=== PATIENT | female | born 1990 | race Caucasian/White ===

== ENCOUNTER 2016-04-30 15:25 | Inpatient (IN) | payer BC ==
[2016-04-30 15:59] LABS: APPEARANCE,URINE SLIGHTLY-CLOUDY; BILIRUBIN,URINE NEGATIVE (NEGATIVE); GLUCOSE, URINE NEGATIVE (NEGATIVE); KETONES,URINE NEGATIVE (NEGATIVE); LEUKOCYTE ESTERASE,URINE NEGATIVE (NEGATIVE); NITRITE,URINE NEGATIVE (NEGATIVE); PROTEIN,URINE NEGATIVE (NEGATIVE); URINE SPECIFIC GRAVITY 1.012; UROBILINOGEN,URINE NEGATIVE mg/dL (<2.0)
--- NOTE | 2016-04-30 16:00 | L&D Flow Sheet ---
LD Flowsheet Datetime Report Generated by CPN: 04/30/2016 16:00 Datetime: 04/30/2016 15:46 Frequency (min): q 3 min (Corine Ioana, RN) Pain Scale: 3 (Corine Ioana, RN) Pain Presence: Intermittent (Corine Vitrano, RN) Pain Type: Contraction (Corine Jaronano, RN) Pain Location: Abdomen (Corine Vitrano, RN) Pain Relief Measures: Comfort Measures (Corine Vitrano, RN) Pain Coping: Breathing Through Contractions (Corine Vitrano, RN) Membrane Status: Intact (Corine Vitrano, RN) Vaginal Bleeding: Normal Show (Corine Vitrano, RN) Level of Consciousness: Fully Conscious (Corine Vitrano, RN) DTR's/Clonus: DTRs 2+; No Clonus (Corine Vitrano, RN) Headache: Denies (Corine Vitrano, RN) Breath Sounds, Left: Clear and Equal (Corine Vitrano, RN) Breath Sounds, Right: Clear and Equal (Corine Vitrano, RN) Nausea/Vomiting: Denies (Corine Triplett RN) RUQ Epigastric Pain: Denies (Corine Triplett RN) LaborFlag: Labor (QS system process) Datetime: 04/30/2016 15:45 I/O Interventions: Popsicle (Corine Triplett RN) Datetime: 04/30/2016 15:42 NBP Sys/Gemma/Mean (mmHg): 120 (QS system process) : 71 (QS system process) : 89 (QS system process) Pulse: 88 (QS system process) Respirations: 17 (Corine Triplett RN) Dilatation (cm): 3.5 (Corine Triplett RN) Effacement (%): 60 (Corine Triplett RN) Station: -2 (Corine Triplett RN) Exam by: Pilo Triplett RN (Corine Triplett RN) Vaginal Bleeding: Normal Show (Corine Triplett RN) Cervix, Consistency: Soft (Corine Triplett RN) Cervix, Position: Midposition (Corine Triplett RN) LaborFlag: Labor (QS system process) Datetime: 04/30/2016 15:40 Patient Position/Activity: Right Tilt; Semi-Fowlers (Corine Triplett RN) I/O Interventions: Clear Liquids Given (Corine Triplett RN) Instructional Method: Verbal; Patient Instructed; Family/Support Person Instructed; Verbalized Understanding (Corine Triplett RN) Plan of Care: Plan of Care Discussed (Corine Triplett RN) Unit Routine: [place] to Room; Call Stock; Bed; Unit Personnel; Monitoring; Safety/Fall Risk Prevention; Bathroom Privileges (Corine Triplett RN)
[2016-04-30 16:22] LABS: URINE BARBITURATES SCREEN NEGATIVE; URINE METHADONE SCREEN NEGATIVE; URINE OPIATES LOW NEGATIVE; URINE PHENCYCLIDINE SCREEN NEGATIVE
[2016-04-30] MEDS ORDERED: RINGERS SOLUTION,LACTATED 1,000 ML IV ONE (17:07)
[2016-04-30] MEDS ORDERED: FENTANYL/BUPIVACAINE/NS/PF 200 MCG/100 ML RTUINJ EPI ONE (17:23)
[2016-04-30] MEDS ORDERED: EPHEDRINE SULFATE INJ 50 MG/1 ML AMPULE ONE ×2 (17:23→21:19)
[2016-04-30] MEDS ORDERED: BUPIVACAINE HCL 0.25 % INJ/PF (2.5 MG/1 ML) 30 ML VIAL ONE (17:23)
[2016-04-30] MEDS ORDERED: FENTANYL CITRATE INJ/PF 100 MCG/2 ML AMPUL ONE (17:24)
[2016-04-30] MEDS ORDERED: PHENYLEPHRINE HCL INJ/PF 10 MG/1 ML SDV ONE (17:24)
[2016-04-30] MEDS ORDERED: ONDANSETRON HCL INJ/PF 4 MG/2 ML SDV IV ONE (17:45)
[2016-04-30] MEDS ORDERED: ONDANSETRON HCL INJ/PF 4 MG/2 ML SDV ONE (17:46)
[2016-04-30 17:55] LABS: ABSOLUTE LYMPHOCYTES (AUTO) 1.2 10^3/uL (0.5-4.7); ABSOLUTE MONOCYTES (AUTO) 0.8 10^3/uL (0.1-1.4); ABSOLUTE NEUT (AUTO) 15.7 10^3/uL (1.7-8.2); BASOPHILS % (AUTO) 0.1 % (0-2); EOSINOPHILS % (AUTO) 0.1 % (0-6); HEMATOCRIT 35.5 % (36.0-47.0); HEMOGLOBIN 12.3 g/dL (12.0-15.5); HGB HCT DIFFERENCE 1.4; LYMPHOCYTES % (AUTO) 6.8 % (13-45); MEAN CORPUSCULAR HEMOGLOBIN 31.2 pg (27.0-33.4); MEAN CORPUSCULAR HGB CONC 34.5 g/dL (32.0-36.0); MEAN CORPUSCULAR VOLUME 91 fl (80-97); MONOCYTES % (AUTO) 4.3 % (3-13); RED BLOOD COUNT 3.92 10^6/uL (3.72-5.28); RED CELL DISTRIBUTION WIDTH 12.5 % (11.5-14.0); SEGMENTED NEUTROPHILS % (AUTO) 88.7 % (42-78); WHITE BLOOD COUNT 17.7 10^3/uL (4.0-10.5)
--- NOTE | 2016-04-30 18:00 | L&D Flow Sheet ---
LD Flowsheet Datetime Report Generated by CPN: 04/30/2016 18:00 Datetime: 04/30/2016 17:57 Procedure Verify: Correct Patient Identity; Correct Side and Site are Marked; Accurate Procedure Consent Form; Agreement on Procedure to be Done; Relevant Images and Results are Properly Labeled and Displayed; Addressed Need to Administer Antibiotics or Fluids for Irrigation; Safety Precautions Based on Patient History or Medication Use (Corine Triplett RN) Anesthesia Plans: Epidural (Corine Triplett RN) Anesthesia Comments: Dr. Tatum called for epidural. States she will be available in approx 10-15 min. (Corine Triplett RN) Datetime: 04/30/2016 17:49 Medication Comments: Zofran 8 mg IV for nausea (Corine Triplett RN) Datetime: 04/30/2016 17:47 Pain Coping: Breathing Through Contractions; Requesting Pain Medication or Epidural (Corine Triplett RN) Pain Assessment Comments: Requesting epidural, LR bolusing (Corine Triplett RN) Comfort Measures: Rocking Chair (Corine Triplett RN) Procedure Verify: Correct Patient Identity; Correct Side and Site are Marked; Accurate Procedure Consent Form; Agreement on Procedure to be Done; Relevant Images and Results are Properly Labeled and Displayed; Addressed Need to Administer Antibiotics or Fluids for Irrigation; Safety Precautions Based on Patient History or Medication Use (Corine Triplett RN) Anesthesia Plans: Epidural (Corine Triplett RN) LaborFlag: Labor (QS system process) Datetime: 04/30/2016 17:34 Patient Care Comments: Labs drawn (Corine Triplett RN) Datetime: 04/30/2016 17:32 IV/Blood Work: IV Started; IV Bolus Started; IV Infusing per Order (Corine Triplett RN) Patient Care Comments: 18 G R hand site WNL; LR bolusing (Corineflorence Triplett RN) Datetime: 04/30/2016 17:30 Monitor Mode: External; Palpation (Rogerio Marks, RN) Frequency (min): 2-4 (Rogerio Marks, RN) Quality: Moderate (Rogerio Brunot, RN) Duration (sec): 80-110 (Rogerio Selina, RN) Duration Criteria: Less than Two 120 Second Contractions (Rogerio Marks, RN) Pattern: Normal: <= 5 Contractions in 10 Minutes (Rogerio Marks, RN) Resting Tone (Palpate): Relaxed (Rogerio Marks, RN) Monitor Mode: External US (Rogerio Marks, RN) FHR Baseline Rate : 130 (Rogerio Marks, RN) Variability: Moderate 6-25 bpm (Rogerio Selina, RN) Accelerations: 15X15 (Rogerio Pelletiereet, RN) Decelerations: None (Rogerio Ellisfleet, RN) Communication: RN at Bedside; RN Reviewed Strip (Rogerio Pelletiereet, RN) Datetime: 04/30/2016 17:21 Temperature (F): 98.0 (Rogerio Pelletiereet, RN) Temperature (C): 36.7 (QS system process) LaborFlag: Labor (QS system process) Datetime: 04/30/2016 17:15 Patient Care Comments: Consents reviewed and signed (Corine Vitrano, RN) Datetime: 04/30/2016 17:05 Communication Comments: Dr. Ellis at bedside to review POC with pt, answer pt questions (Corine Vitrano, RN) Datetime: 04/30/2016 17:04 NBP Sys/Gemma/Mean (mmHg): 111 (QS system process) : 68 (QS system process) : 83 (QS system process) Pulse: 89 (QS system process) Respirations: 16 (Corine Vitrano, RN) LaborFlag: Labor (QS system process) Datetime: 04/30/2016 17:03 Communication Comments: Dr. Ellis on unit, reviewed strip. Report given to include EGA 39.6, , pt complaints, nursing assessment, toco tracing, FHTs, VS, SVEs. Orders to admit pt for labor, epidural PRN. (Corine Vitrano, RN) Datetime: 04/30/2016 17:02 Dilatation (cm): 4.5 (Corine Jaronano, RN) Effacement (%): 70 (Corine Vitrano, RN) Station: -2 (Corine Jaronano, RN) Exam by: Pilo Triplett RN (Corine Vitrano, RN) Vaginal Bleeding: Normal Show (Corine Jaronano, RN) Cervix, Consistency: Soft (Corine Vitrano, RN) Cervix, Position: Midposition (Corine Jaronano, RN) Datetime: 04/30/2016 16:15 Pain Assessment Comments: Pt ambulating. Warm pack provided. (Corine Jaronano, RN) LaborFlag: Labor (QS system process) Datetime: 04/30/2016 16:02 Monitor Mode: External; Palpation (Corine Triplett RN) Frequency (min): 2-4 (Corine Triplett RN) Quality: Mild/Moderate (Corineflorence Triplett, RN) Duration (sec): 60-120 (Corine Ioana, RN) Duration Criteria: Less than Two 120 Second Contractions (Corine Triplett RN) Pattern: Normal: <= 5 Contractions in 10 Minutes (Corine Triplett, RN) Resting Tone (Palpate): Relaxed (Corine Triplett, RN) Monitor Mode: External US (Corine Triplett, RN) FHR Baseline Rate : 125 (Corine Triplett, RN) Variability: Moderate 6-25 bpm (Corine Triplett, RN) Accelerations: 15X15 (Corineflorence Triplett, RN) Decelerations: None (Corine Triplett, RN) Instructional Method: Verbal; Patient Instructed; Family/Support Person Instructed; Verbalized Understanding (Corine Triplett, RN) Plan of Care: Plan of Care Discussed (Corine Triplett, RN) Labor/Induction: Labor Stages; Activity (Corine Triplett, RN) Pain Management: Comfort Measures (Corine Triplett, RN) Communication Comments: Ruben Pino CNM on unit, reviewed strip. Report given to include EGA 39.6, , nursing assessment, pt complaints, pt history, VS, SVE. Orders to allow pt to ambulate q 1 hour. (Corine Triplett RN)
[2016-04-30] MEDS ORDERED: DIPHENHYDRAMINE HCL 50 MG/ML VIAL ONE (18:11)
--- NOTE | 2016-04-30 18:37 | L&D Progress Notes ---
PROGRESS NOTES Datetime Report Generated by CPN: 04/30/2016 18:36 PROGRESS NOTE Impression: Normal Progression of Labor; Reassuring Heart Rate Procedures: Artificial ROM; Sterile Vag Exam Plan: Continue Present Management Informed Consent Obtained: Vaginal Delivery Vital Signs : Reviewed Comment: Comfortable with epidural AROM, light mec Continue present mgmt VAGINAL EXAM Dilatation: 6 Effacement: 90 Station: -1 Contractions: every 2 min MEMBRANES Membranes: Ruptured Amniotic Fluid Color: Meconium, Light FETUS A FHR - Baseline: 120 Monitoring: External US Variability: Moderate 6-25bpm Accelerations: 15X15 Decelerations: None FHR Category: Category I SIGNATURE SIGNATURE: [id number] Assignment: Angélica Ellis MD Signature: with User ID: [id number] : with User ID: [email or web address]
[2016-04-30] MEDS ORDERED: MAG HYDROX/AL HYDROX/SIMETH SUSP 30 ML UDCUP ONE (19:19)
[2016-04-30] MEDS: RINGERS SOLUTION,LACTATED 1,000 ML IV PRN (19:22)
[2016-04-30] MEDS ORDERED: OXYTOCIN/NORMAL SALINE 20 UNIT/1,000 ML RTUINJ ONE (19:29)
--- NOTE | 2016-04-30 20:00 | L&D Flow Sheet ---
LD Flowsheet Datetime Report Generated by CPN: 04/30/2016 20:00 Datetime: 04/30/2016 19:57 NBP Sys/Gemma/Mean (mmHg): 112 (QS system process) : 64 (QS system process) : 82 (QS system process) Pulse: 81 (QS system process) LaborFlag: Labor (QS system process) Datetime: 04/30/2016 19:51 Patient Care Comments: Pt comfortable, denies complaints, denies needs (Corine Vitrano, RN) Datetime: 04/30/2016 19:45 Monitor Mode: External (Corine Vitrano, RN) Frequency (min): 1-4 (Corine Vitrano, RN) Quality: Moderate to Strong (Corine Vitrano, RN) Duration (sec): 50-90 (Corine Vitrano, RN) Duration Criteria: Less than Two 120 Second Contractions (Corine Vitrano, RN) Pattern: Normal: <= 5 Contractions in 10 Minutes (Corine Vitrano, RN) Resting Tone (Palpate): Relaxed (Corine Vitrano, RN) Monitor Mode: External US (Corine Vitrano, RN) FHR Baseline Rate : 130 (Corine Vitrano, RN) Variability: Moderate 6-25 bpm (Corine Vitrano, RN) Accelerations: 15X15 (Corine Vitrano, RN) Decelerations: None (Corine Vitrano, RN) Pitocin (milliunit): Pitocin Started (milliunits) @ 2; Pitocin 20 Units in 1000ml NS (Corine Vitrano, RN) Datetime: 04/30/2016 19:43 NBP Sys/Gemma/Mean (mmHg): 116 (QS system process) : 67 (QS system process) : 86 (QS system process) Pulse: 77 (QS system process) Respirations: 16 (Corine Vitrano, RN) LaborFlag: Labor (QS system process) Datetime: 04/30/2016 19:30 Monitor Mode: External (Corine Vitrano, RN) Frequency (min): 1-4 (Corine Vitrano, RN) Quality: Moderate to Strong (Corine Vitrano, RN) Duration (sec): 50-80 (Corine Vitrano, RN) Duration Criteria: Less than Two 120 Second Contractions (Corine Vitrano, RN) Pattern: Normal: <= 5 Contractions in 10 Minutes (Corine Vitrano, RN) Resting Tone (Palpate): Relaxed (Corine Vitrano, RN) Monitor Mode: External US (Corine Vitrano, RN) FHR Baseline Rate : 135 (Corine Vitrano, RN) Variability: Moderate 6-25 bpm (Corine Vitrano, RN) Accelerations: 15X15 (Corine Vitrano, RN) Decelerations: None (Corine Vitrano, RN) Datetime: 04/30/2016 19:27 NBP Sys/Gemma/Mean (mmHg): 102 (QS system process) : 63 (QS system process) : 76 (QS system process) Pulse: 82 (QS system process) Respirations: 16 (Corine Vitrano, RN) LaborFlag: Labor (QS system process) Datetime: 04/30/2016 19:23 Temperature (F): 98.0 (Corine Vitrano, RN) Temperature (C): 36.7 (QS system process) Temperature Route: Oral (Corine Vitrano, RN) LaborFlag: Labor (QS system process) Datetime: 04/30/2016 19:22 Medication Comments: Maalox 30 mL (Corine Vitrano, RN) Datetime: 04/30/2016 19:18 Patient Care Comments: Pt reports complaint of heartburn (Corine Vitrano, RN) Datetime: 04/30/2016 19:16 Patient Position/Activity: Left Tilt; Tailors (Corine Vitrano, RN) Datetime: 04/30/2016 19:15 Monitor Mode: External (Corine Vitrano, RN) Frequency (min): 1-3 (Corine Vitrano, RN) Quality: Moderate to Strong (Corine Vitrano, RN) Duration (sec): 50-130 (Corine Vitrano, RN) Duration Criteria: Less than Two 120 Second Contractions (Corine Vitrano, RN) Pattern: Normal: <= 5 Contractions in 10 Minutes (Corine Vitrano, RN) Resting Tone (Palpate): Relaxed (Corine Vitrano, RN) Monitor Mode: External US (Corine Vitrano, RN) FHR Baseline Rate : 125 (Corine Vitrano, RN) Variability: Moderate 6-25 bpm (Corine Vitrano, RN) Accelerations: None (Corine Vitrano, RN) Decelerations: None (Corine Vitrano, RN) Datetime: 04/30/2016 19:13 NBP Sys/Gemma/Mean (mmHg): 101 (QS system process) : 55 (QS system process) : 72 (QS system process) Pulse: 75 (QS system process) Respirations: 16 (Corine Vitrano, RN) LaborFlag: Labor (QS system process) Datetime: 04/30/2016 19:02 Communication Comments: Dr. Ellis placed call to unit, update on pt given. Orders received to augment with Pitocin 20 units in 1000 ML if contractions become more infrequent; start at 2 mU/min increasing q 15 by 2 mU/min to a max of 20 mU/min or until an adequate pattern of labor is established. (Corine Vitrano, RN) Datetime: 04/30/2016 19:00 Monitor Mode: External; Palpation (Corine Vitrano, RN) Frequency (min): 1-4 (Corine Vitrano, RN) Quality: Moderate to Strong (Corine Vitrano, RN) Duration (sec): 50-60 (Corine Vitrano, RN) Duration Criteria: Less than Two 120 Second Contractions (Corine Vitrano, RN) Pattern: Normal: <= 5 Contractions in 10 Minutes (Corine Vitrano, RN) Resting Tone (Palpate): Relaxed (Corine Vitrano, RN) Monitor Mode: External US (Corine Vitrano, RN) FHR Baseline Rate : 130 (Corine Vitrano, RN) Variability: Moderate 6-25 bpm (Corine Vitrano, RN) Accelerations: None (Corine Vitrano, RN) Decelerations: Early (Corine Vitrano, RN) Datetime: 04/30/2016 18:58 NBP Sys/Gemma/Mean (mmHg): 99 (QS system process) : 58 (QS system process) : 74 (QS system process) Pulse: 77 (QS system process) Respirations: 16 (Corine Vitrano, RN) LaborFlag: Labor (QS system process) Datetime: 04/30/2016 18:45 Monitor Mode: External (Corine Vitrano, RN) Frequency (min): 2-3.5 (Corine Vitrano, RN) Quality: Moderate to Strong (Corine Vitrano, RN) Duration (sec): 50-70 (Corine Vitrano, RN) Duration Criteria: Less than Two 120 Second Contractions (Corine Vitrano, RN) Pattern: Normal: <= 5 Contractions in 10 Minutes (Corine Vitrano, RN) Resting Tone (Palpate): Relaxed (Corine Vitrano, RN) Monitor Mode: External US (Corine Vitrano, RN) FHR Baseline Rate : 130 (Corine Vitrano, RN) Variability: Moderate 6-25 bpm (Corine Vitrano, RN) Accelerations: 15X15 (Corine Vitrano, RN) Decelerations: Early (Corine Vitrano, RN) Datetime: 04/30/2016 18:42 NBP Sys/Gemma/Mean (mmHg): 98 (QS system process) : 56 (QS system process) : 74 (QS system process) Pulse: 75 (QS system process) Respirations: 16 (Corine Vitrano, RN) LaborFlag: Labor (QS system process) Datetime: 04/30/2016 18:37 Patient Care Comments: Warm blankets given (Corine Vitrano, RN) Datetime: 04/30/2016 18:34 Pain Presence: None/Denies (Corine Ioana, RN) Pain Type: N/A (Corine Ioana, RN) Patient Position/Activity: Right Lateral; Peanut Ball (Corine Ioana, RN) Patient Care Comments: Skin irritation/itching improved, appears WNL (Corine Vitrano, RN) LaborFlag: Labor (QS system process) Datetime: 04/30/2016 18:33 Membrane Status: Ruptured (Corine Vitrano, RN) Membranes Rupture Method: Artificial (Corine Vitrano, RN) Amniotic Fluid Color: Light Meconium (Corine Vitrano, RN) Amniotic Fluid Amount: Large (Corine Vitrano, RN) Datetime: 04/30/2016 18:32 Communication Comments: H. Alvarez, CNM at bedside to AROM pt (Corine Vitrano, RN) Datetime: 04/30/2016 18:30 Monitor Mode: External; Palpation (Rogerio Marks RN) Frequency (min): 2-3 (Rogerio Marks, RN) Quality: Moderate (Rogerio Marks, RN) Duration (sec): 80-100 (Rogerio Marks, RN) Resting Tone (Palpate): Relaxed (Rogerio Marks RN) Monitor Mode: External US (Rogerio Marks RN) FHR Baseline Rate : 130 (Rogerio Marks, RN) Variability: Moderate 6-25 bpm (Rogerio Brunot, RN) Accelerations: 15X15 (Rogerio Marks, RN) Decelerations: None (Rogerio Marks, RN) Communication: RN at Bedside; RN Reviewed Strip (Rogerio Marks RN) Datetime: 04/30/2016 18:29 IV/Blood Work: IV Infusing per Order (Corine Triplett RN) Patient Care Comments: 125 mL/hour (Corine Jaronano, RN) Datetime: 04/30/2016 18:28 Patient Position/Activity: Right Lateral (Corine Vitrano, RN) Datetime: 04/30/2016 18:27 Patient Position/Activity: Left Lateral (Corine Vitrano, RN) Datetime: 04/30/2016 18:26 Dilatation (cm): 6.0 (Corine Vitrano, RN) Effacement (%): 80 (Corine Vitrano, RN) Station: -2 (Corine Vitrano, RN) Exam by: Pilo Triplett RN (Corine Vitrano, RN) Membrane Status: Bulging (Corine Vitrano, RN) Datetime: 04/30/2016 18:24 I/O Interventions: [place]in Cath Inserted (Corine Vitrano, RN) Patient Care Comments: Clear urine draining (Corine Vitrano, RN) Datetime: 04/30/2016 18:21 NBP Sys/Gemma/Mean (mmHg): 111 (QS system process) : 62 (QS system process) : 79 (QS system process) Pulse: 83 (QS system process) Respirations: 16 (Corine Vitrano, RN) LaborFlag: Labor (QS system process) Datetime: 04/30/2016 18:20 NBP Sys/Gemma/Mean (mmHg): 117 (QS system process) : 58 (QS system process) : 84 (QS system process) Pulse: 83 (QS system process) LaborFlag: Labor (QS system process) Datetime: 04/30/2016 18:19 NBP Sys/Gemma/Mean (mmHg): 119 (QS system process) : 58 (QS system process) : 81 (QS system process) Pulse: 80 (QS system process) Anesthesia Level Check: T10- Umbilicus (Corine Vitrano, RN) LaborFlag: Labor (QS system process) Datetime: 04/30/2016 18:18 NBP Sys/Gemma/Mean (mmHg): 121 (QS system process) : 64 (QS system process) : 83 (QS system process) Pulse: 81 (QS system process) LaborFlag: Labor (QS system process) Datetime: 04/30/2016 18:16 NBP Sys/Gemma/Mean (mmHg): 122 (QS system process) : 68 (QS system process) : 87 (QS system process) Pulse: 79 (QS system process) LaborFlag: Labor (QS system process) Datetime: 04/30/2016 18:15 NBP Sys/Gemma/Mean (mmHg): 127 (QS system process) : 79 (QS system process) : 98 (QS system process) Pulse: 82 (QS system process) Anesthesia Plans: Epidural (Corine Vitrano, RN) Epidural Procedure: Loading Dose (Corine Vitrano, RN) LaborFlag: Labor (QS system process) Datetime: 04/30/2016 18:14 NBP Sys/Gemma/Mean (mmHg): 115 (QS system process) : 63 (QS system process) : 83 (QS system process) Pulse: 82 (QS system process) Anesthesia Plans: Epidural (Corine Vitrano, RN) Epidural Procedure: Cath Placed (Corine Vitrano, RN) LaborFlag: Labor (QS system process) Datetime: 04/30/2016 18:13 Pulse: 84 (QS system process) SpO2 (%): 100 (QS system process) Anesthesia Plans: Epidural (Corine Vitrano, RN) Epidural Procedure: Test Dose (Corine Vitrano, RN) LaborFlag: Labor (QS system process) Datetime: 04/30/2016 18:11 Medication Comments: Benadryl 50 mg IV (Corine Vitrano, RN) Patient Care Comments: Raised white whelts and itching on R wrist. Dr. Ellis notified, orders for Benadryl 25 mg IV x1 now (Corine Vitrano, RN) Datetime: 04/30/2016 18:09 Comments: Broken tracing d/t pt position for epidural. RN remains at bedside adjusting US throughout procedure. (Corine Triplett RN) Datetime: 04/30/2016 18:08 Pulse: 84 (QS system process) SpO2 (%): 100 (QS system process) Procedure Verify: Correct Patient Identity; Correct Side and Site are Marked; Accurate Procedure Consent Form; Agreement on Procedure to be Done; Correct Patient Position; Relevant Images and Results are Properly Labeled and Displayed; Addressed Need to Administer Antibiotics or Fluids for Irrigation; Safety Precautions Based on Patient History or Medication Use (Corine Triplett RN) Anesthesia Plans: None; Epidural (Corine Triplett RN) Epidural Positioning: Sitting (Corine Triplett RN) Anesthesia Comments: Dr. Rodarte at bedside or epidural (Corine Triplett RN) LaborFlag: Labor (QS system process) Datetime: 04/30/2016 18:04 I/O Interventions: Up to BR (Corine Triplett RN) Datetime: 04/30/2016 18:00 Monitor Mode: External; Palpation (Rogerio Marks RN) Frequency (min): 2-4 (Rogerio Marks RN) Quality: Moderate (Rogerio Marks RN) Duration (sec): 60-90 (Rogerio Marks RN) Duration Criteria: Less than Two 120 Second Contractions (Rogerio Marks RN) Pattern: Normal: <= 5 Contractions in 10 Minutes (Rogerio Marks RN) Resting Tone (Palpate): Relaxed (Rogerio Marks RN) Monitor Mode: External US (Rogerio Marks RN) FHR Baseline Rate : 120 (Rogerio Marks RN) Variability: Moderate 6-25 bpm (Rogerio Marks RN) Accelerations: 15X15 (Rogerio Marks RN) Decelerations: None (Rogerio Marks RN) Communication: RN at Bedside; RN Reviewed Strip (Rogerio Marks RN)
[2016-04-30] MEDS ORDERED: LIDOCAINE 2%/EPINEPHRINE INJ 20 ML VIAL ONE (20:43)
[2016-04-30] MEDS ORDERED: SODIUM BICARBONATE 8.4% INJ 50 MEQ/50 ML DISP.SYRIN ONE (20:44)
--- NOTE | 2016-04-30 22:00 | L&D Flow Sheet ---
LD Flowsheet Datetime Report Generated by CPN: 04/30/2016 22:00 Datetime: 04/30/2016 21:59 NBP Sys/Gemma/Mean (mmHg): 103 (QS system process) : 57 (QS system process) : 78 (QS system process) Pulse: 109 (QS system process) LaborFlag: Labor (QS system process) Datetime: 04/30/2016 21:54 NBP Sys/Gemma/Mean (mmHg): 98 (QS system process) : 55 (QS system process) : 73 (QS system process) Pulse: 107 (QS system process) LaborFlag: Labor (QS system process) Datetime: 04/30/2016 21:49 NBP Sys/Gemma/Mean (mmHg): 106 (QS system process) : 58 (QS system process) : 78 (QS system process) Pulse: 102 (QS system process) LaborFlag: Labor (QS system process) Datetime: 04/30/2016 21:45 Monitor Mode: External (Corine Vitrano, RN) Frequency (min): 2-3 (Corine Vitrano, RN) Quality: Moderate to Strong (Corine Vitrano, RN) Duration (sec): 50-90 (Corine Vitrano, RN) Duration Criteria: Less than Two 120 Second Contractions (Corine Vitrano, RN) Pattern: Normal: <= 5 Contractions in 10 Minutes (Corine Vitrano, RN) Resting Tone (Palpate): Relaxed (Corine Vitrano, RN) Monitor Mode: External US (Corine Vitrano, RN) FHR Baseline Rate : 140 (Corine Vitrano, RN) Variability: Moderate 6-25 bpm (Corine Vitrano, RN) Accelerations: 10X10 (Corine Vitrano, RN) Decelerations: None (Corine Vitrano, RN) Datetime: 04/30/2016 21:44 NBP Sys/Gemma/Mean (mmHg): 98 (QS system process) : 51 (QS system process) : 71 (QS system process) Pulse: 98 (QS system process) Respirations: 16 (Corine Jaronano, RN) LaborFlag: Labor (QS system process) Datetime: 04/30/2016 21:42 NBP Sys/Gemma/Mean (mmHg): 94 (QS system process) : 53 (QS system process) : 68 (QS system process) Pulse: 164 (QS system process) Respirations: 16 (Corine Ioana, RN) Pain Presence: None/Denies (Corine Triplett RN) Pain Type: N/A (Corine Triplett RN) Patient Position/Activity: Right Tilt; Tailors (Corine Triplett RN) Patient Care Comments: Denies needs, resting comfortably (Corine Vitrano, RN) LaborFlag: Labor (QS system process) Datetime: 04/30/2016 21:41 Comments: O2 d/c (Corine Vitrano, RN) Datetime: 04/30/2016 21:39 NBP Sys/Gemma/Mean (mmHg): 88 (QS system process) : 51 (QS system process) : 67 (QS system process) Pulse: 78 (QS system process) Respirations: 16 (Corine Vitrano, RN) LaborFlag: Labor (QS system process) Datetime: 04/30/2016 21:38 NBP Sys/Gemma/Mean (mmHg): 86 (QS system process) : 46 (QS system process) : 63 (QS system process) Pulse: 82 (QS system process) Respirations: 16 (Corine Vitrano, RN) LaborFlag: Labor (QS system process) Datetime: 04/30/2016 21:36 NBP Sys/Gemma/Mean (mmHg): 84 (QS system process) : 41 (QS system process) : 59 (QS system process) Pulse: 82 (QS system process) Respirations: 16 (Corine Vitrano, RN) LaborFlag: Labor (QS system process) Datetime: 04/30/2016 21:33 NBP Sys/Gemma/Mean (mmHg): 91 (QS system process) : 43 (QS system process) : 62 (QS system process) Pulse: 78 (QS system process) Respirations: 16 (Corine Vitrano, RN) LaborFlag: Labor (QS system process) Datetime: 04/30/2016 21:31 NBP Sys/Gemma/Mean (mmHg): 90 (QS system process) : 45 (QS system process) : 65 (QS system process) Pulse: 82 (QS system process) Respirations: 16 (Corine Vitrano, RN) LaborFlag: Labor (QS system process) Datetime: 04/30/2016 21:30 NBP Sys/Gemma/Mean (mmHg): 96 (QS system process) : 46 (QS system process) : 67 (QS system process) Pulse: 86 (QS system process) Respirations: 16 (Corine Vitrano, RN) Monitor Mode: External; Palpation (Corine Vitrano, RN) Frequency (min): 2-3 (Corine Vitrano, RN) Quality: Moderate to Strong (Corine Vitrano, RN) Duration (sec): 50-60 (Corine Vitrano, RN) Duration Criteria: Less than Two 120 Second Contractions (Corine Vitrano, RN) Pattern: Normal: <= 5 Contractions in 10 Minutes (Corine Vitrano, RN) Resting Tone (Palpate): Relaxed (Corine Vitrano, RN) Monitor Mode: External US (Corine Vitrano, RN) FHR Baseline Rate : 140 (Corine Vitrano, RN) Variability: Minimal - Undetectable to <=5 bpm (Corine Vitrano, RN) Accelerations: None (Corine Vitrano, RN) Decelerations: Late; Variable; Prolonged (Corine Vitrano, RN) LaborFlag: Labor (QS system process) Datetime: 04/30/2016 21:27 NBP Sys/Gemma/Mean (mmHg): 86 (QS system process) : 42 (QS system process) : 60 (QS system process) Pulse: 90 (QS system process) Medication Comments: Ephedrine 5 mg IV (Corine Vitrano, RN) LaborFlag: Labor (QS system process) Datetime: 04/30/2016 21:26 Oxygen Amount : 10 (Corine Vitrano, RN) Oxygen Method: Non-Rebreather (Corine Vitrano, RN) Datetime: 04/30/2016 21:24 NBP Sys/Gemma/Mean (mmHg): 91 (QS system process) : 47 (QS system process) : 66 (QS system process) Pulse: 97 (QS system process) LaborFlag: Labor (QS system process) Datetime: 04/30/2016 21:23 Medication Comments: Ephedrine 5 mg IV (Corine Vitrano, RN) Datetime: 04/30/2016 21:22 IV/Blood Work: New IV Bag Hung; IV Bag Number @ 2 (Corine Vitrano, RN) Datetime: 04/30/2016 21:21 Pitocin (milliunit): Pitocin Discontinued (Corine Vitrano, RN) Patient Position/Activity: Right Lateral (Corine Vitrano, RN) Datetime: 04/30/2016:20 NBP Sys/Gemma/Mean (mmHg): 100 (QS system process) : 58 (QS system process) : 73 (QS system process) Pulse: 96 (QS system process) Medication Comments: Ephedrine 5 mg IV (Corine Vitrano, RN) LaborFlag: Labor (QS system process) Datetime: 04/30/2016 21:19 NBP Sys/Gemma/Mean (mmHg): 93 (QS system process) : 59 (QS system process) : 70 (QS system process) Pulse: 102 (QS system process) Respirations: 16 (Corine Vitrano, RN) Patient Position/Activity: Trendelenburg (Corine Vitrano, RN) LaborFlag: Labor (QS system process) Datetime: 04/30/2016 21:18 Medication Comments: Ephedrine 5 mg IV (Corine Vitrano, RN) Datetime: 04/30/2016 21:17 NBP Sys/Gemma/Mean (mmHg): 84 (QS system process) : 53 (QS system process) : 64 (QS system process) Pulse: 107 (QS system process) IV/Blood Work: IV Bolus Started (Corine Vitrano, RN) LaborFlag: Labor (QS system process) Datetime: 04/30/2016 21:15 Monitor Mode: External (Corine Vitrano, RN) Frequency (min): 2-3.5 (Corine Vitrano, RN) Quality: Moderate to Strong (Corine Vitrano, RN) Duration (sec): 50-70 (Corine Vitrano, RN) Duration Criteria: Less than Two 120 Second Contractions (Corine Vitrano, RN) Pattern: Normal: <= 5 Contractions in 10 Minutes (Corine Vitrano, RN) Resting Tone (Palpate): Relaxed (Corine Vitrano, RN) Monitor Mode: External US (Corine Vitrano, RN) FHR Baseline Rate : 140 (Corine Vitrano, RN) Variability: Moderate 6-25 bpm (Corine Vitrano, RN) Accelerations: None (Corine Vitrano, RN) Decelerations: Late (Corine Vitrano, RN) Pitocin (milliunit): Pitocin Remains (milliunits) @ 8 (Corine Vitrano, RN) Patient Position/Activity: Left Lateral (Corine Vitrano, RN) Datetime: 04/30/2016 21:13 NBP Sys/Gemma/Mean (mmHg): 84 (QS system process) : 51 (QS system process) : 61 (QS system process) Pulse: 100 (QS system process) LaborFlag: Labor (QS system process) Datetime: 04/30/2016 21:00 Monitor Mode: External; Palpation (Corine Vitrano, RN) Frequency (min): 2-4 (Corine Vitrano, RN) Quality: Moderate to Strong (Corine Vitrano, RN) Duration (sec): 60-90 (Corine Vitrano, RN) Duration Criteria: Less than Two 120 Second Contractions (Corine Vitrano, RN) Pattern: Normal: <= 5 Contractions in 10 Minutes (Corine Vitrano, RN) Resting Tone (Palpate): Relaxed (Corine Vitrano, RN) Monitor Mode: External US (Corine Vitrano, RN) FHR Baseline Rate : 140 (Corine Vitrano, RN) Variability: Moderate 6-25 bpm (Corine Vitrano, RN) Accelerations: None (Corine Vitrano, RN) Decelerations: Early (Corine Vitrano, RN) Pain Presence: None/Denies (Corine Vitrano, RN) Pain Type: N/A (Corine Vitrano, RN) Pitocin (milliunit): Pitocin Increased to (milliunits) @ 8 (Corine Vitrano, RN) LaborFlag: Labor (QS system process) Datetime: 04/30/2016 20:59 Patient Position/Activity: Right Lateral (Corine Vitrano, RN) Datetime: 04/30/2016 20:58 NBP Sys/Gemma/Mean (mmHg): 100 (QS system process) : 55 (QS system process) : 72 (QS system process) Pulse: 93 (QS system process) Respirations: 16 (Corine Vitrano, RN) Temperature (F): 98.3 (Corine Vitrano, RN) Temperature (C): 36.8 (QS system process) Temperature Route: Oral (Corine Vitrano, RN) LaborFlag: Labor (QS system process) Datetime: 04/30/2016 20:52 Patient Position/Activity: Left Tilt; Low Fowlers (Corine Vitrano, RN) Datetime: 04/30/2016 20:51 NBP Sys/Gemma/Mean (mmHg): 125 (QS system process) : 69 (QS system process) : 89 (QS system process) Pulse: 74 (QS system process) Respirations: 16 (Corine Vitrano, RN) LaborFlag: Labor (QS system process) Datetime: 04/30/2016 20:50 Epidural Procedure Other: Redose (Corine Vitrano, RN) Anesthesia Comments: [facility] bedside bolusing epidural w 2% Lidocaine w/epinephrine (Corine Vitrano, RN) Datetime: 04/30/2016 20:45 Monitor Mode: External (Corine Vitrano, RN) Frequency (min): 1-3 (Corine Vitrano, RN) Quality: Moderate (Corine Vitrano, RN) Duration (sec): 50-110 (Corine Vitrano, RN) Duration Criteria: Less than Two 120 Second Contractions (Corine Vitrano, RN) Pattern: Normal: <= 5 Contractions in 10 Minutes (Corine Vitrano, RN) Resting Tone (Palpate): Relaxed (Corine Vitrano, RN) Monitor Mode: External US (Corine Vitrano, RN) FHR Baseline Rate : 135 (Corine Vitrano, RN) Variability: Moderate 6-25 bpm (Corine Vitrano, RN) Accelerations: None (Corine Vitrano, RN) Decelerations: None (Corine Vitrano, RN) Pitocin (milliunit): Pitocin Remains (milliunits) @ 6 (Corine Vitrano, RN) Datetime: 04/30/2016 20:42 NBP Sys/Gemma/Mean (mmHg): 122 (QS system process) : 67 (QS system process) : 88 (QS system process) Pulse: 75 (QS system process) Respirations: 16 (Corine Vitrano, RN) LaborFlag: Labor (QS system process) Datetime: 04/30/2016 20:41 Anesthesia Comments: Dr. [place] notified of pt complaint of pain, provider to bolus pt epidural (Corine Vitrano, RN) Datetime: 04/30/2016 20:40 Pitocin (milliunit): Pitocin Increased to (milliunits) @ 6 (Corine Vitrano, RN) Datetime: 04/30/2016 20:38 Anesthesia Level Check: T10- Umbilicus (Corine Vitrano, RN) Datetime: 04/30/2016 20:36 Patient Position/Activity: Right Tilt; Semi-Fowlers (Corine Vitrano, RN) Datetime: 04/30/2016 20:35 Pain Presence: Intermittent (Corine Vitrano, RN) Pain Type: Contraction (Corine Vitrano, RN) Pain Location: Abdomen (Corine Vitrano, RN) Dilatation (cm): 7.0 (Corine Vitrano, RN) Effacement (%): 80 (Corine Vitrano, RN) Station: -1 (Corine Vitrano, RN) Exam by: Pilo Triplett RN (Corine Vitrano, RN) LaborFlag: Labor (QS system process) Datetime: 04/30/2016 20:30 Monitor Mode: External (Corine Vitrano, RN) Frequency (min): 2-3 (Corine Vitrano, RN) Quality: Moderate to Strong (Corine Vitrano, RN) Duration (sec): 50-80 (Corine Vitrano, RN) Duration Criteria: Less than Two 120 Second Contractions (Corine Vitrano, RN) Pattern: Normal: <= 5 Contractions in 10 Minutes (Corine Vitrano, RN) Resting Tone (Palpate): Relaxed (Corine Vitrano, RN) Monitor Mode: External US (Corine Vitrano, RN) FHR Baseline Rate : 135 (Corine Vitrano, RN) Variability: Moderate 6-25 bpm (Corine Vitrano, RN) Accelerations: None (Corine Vitrano, RN) Decelerations: None (Corine Vitrano, RN) Pitocin (milliunit): Pitocin Remains (milliunits) @ 4 (Corine Vitrano, RN) Datetime: 04/30/2016 20:28 NBP Sys/Gemma/Mean (mmHg): 116 (QS system process) : 60 (QS system process) : 80 (QS system process) Pulse: 80 (QS system process) Respirations: 16 (Corine Vitrano, RN) LaborFlag: Labor (QS system process) Datetime: 04/30/2016 20:15 Monitor Mode: External (Corine Vitrano, RN) Frequency (min): 1-3 (Corine Vitrano, RN) Quality: Moderate to Strong (Corine Vitrano, RN) Duration (sec): 50-60 (Corine Vitrano, RN) Duration Criteria: Less than Two 120 Second Contractions (Corine Vitrano, RN) Pattern: Normal: <= 5 Contractions in 10 Minutes (Corine Vitrano, RN) Resting Tone (Palpate): Relaxed (Corine Vitrano, RN) Monitor Mode: External US (Corine Vitrano, RN) FHR Baseline Rate : 130 (Corine Vitrano, RN) Variability: Moderate 6-25 bpm (Corine Vitrano, RN) Accelerations: None (Corine Vitrano, RN) Decelerations: Early (Corine Vitrano, RN) Pitocin (milliunit): Pitocin Increased to (milliunits) @ 4 (Corine Vitrano, RN) Datetime: 04/30/2016 20:13 NBP Sys/Gemma/Mean (mmHg): 103 (QS system process) : 56 (QS system process) : 75 (QS system process) Pulse: 74 (QS system process) Respirations: 16 (Corine Vitrano, RN) LaborFlag: Labor (QS system process) Datetime: 04/30/2016 20:04 Patient Position/Activity: Right Lateral; Peanut Ball (Corine Vitrano, RN) Datetime: 04/30/2016 20:00 Monitor Mode: External; Palpation (Corine Vitrano, RN) Frequency (min): 1-4 (Corine Vitrano, RN) Quality: Moderate to Strong (Corine Vitrano, RN) Duration (sec): 50-80 (Corine Vitrano, RN) Duration Criteria: Less than Two 120 Second Contractions (Corine Vitrano, RN) Pattern: Normal: <= 5 Contractions in 10 Minutes (Corine Vitrano, RN) Resting Tone (Palpate): Relaxed (Corine Vitrano, RN) Monitor Mode: External US (Corine Vitrano, RN) FHR Baseline Rate : 130 (Corine Vitrano, RN) Variability: Moderate 6-25 bpm (Corine Vitrano, RN) Accelerations: 15X15 (Corine Vitrano, RN) Decelerations: None (Corine Vitrano, RN) Pitocin (milliunit): Pitocin Remains (milliunits) @ 2 (Corine Vitrano, RN)
[2016-05-01] MEDS ORDERED: MAG HYDROX/AL HYDROX/SIMETH SUSP 30 ML UDCUP ONE (00:19)
[2016-05-01] MEDS ORDERED: NALBUPHINE HCL INJ 10 MG/1 ML AMPULE ONE (01:01)
[2016-05-01] MEDS ORDERED: ONDANSETRON 4 MG TAB.RAPDIS ONE (01:02)
[2016-05-01] MEDS ORDERED: DIPHENHYDRAMINE HCL 25 MG CAPSULE ONE (01:02)
[2016-05-01] MEDS ORDERED: FENTANYL CITRATE INJ/PF 100 MCG/2 ML AMPUL ONE ×2 (02:16→05:19)
[2016-05-01] MEDS ORDERED: EPHEDRINE SULFATE INJ 50 MG/1 ML AMPULE ONE ×2 (02:37→05:19)
[2016-05-01] MEDS ORDERED: LIDOCAINE 2%/EPINEPHRINE INJ 20 ML VIAL ONE (02:38)
[2016-05-01] MEDS ORDERED: FENTANYL CITRATE INJ/PF 100 MCG/2 ML AMPUL IV ONE (02:45)
[2016-05-01] MEDS ORDERED: FENTANYL/BUPIVACAINE/NS/PF 200 MCG/100 ML RTUINJ EPI ONE (03:00)
[2016-05-01] MEDS ORDERED: CITRIC ACID/SODIUM CITRATE ORAL SOLN 15 ML UDCUP ONE (04:55)
[2016-05-01] MEDS ORDERED: CEFAZOLIN 2 GM/D5W RTU 2 GM/50 ML RTUPB IV ONE (04:55)
[2016-05-01] MEDS ORDERED: OXYTOCIN 10 UNIT/ML VIAL ONE (05:18)
[2016-05-01] MEDS ORDERED: OXYTOCIN/NORMAL SALINE 20 UNIT/1,000 ML RTUINJ ONE (05:18)
[2016-05-01] MEDS ORDERED: KETAMINE HCL INJ 500 MG/10 ML VIAL ONE (05:19)
[2016-05-01] MEDS ORDERED: MIDAZOLAM 2 MG/2 ML INJ ONE (05:19)
[2016-05-01] MEDS ORDERED: FENTANYL CITRATE INJ/PF 100 MCG/2 ML AMPUL IV PRN ×3 (06:12)
[2016-05-01] MEDS ORDERED: MEPERIDINE HCL/PF INJ 25 MG/1 ML DISP.SYRIN IV PRN (06:12)
[2016-05-01] MEDS ORDERED: DIPHENHYDRAMINE HCL 50 MG/ML VIAL IV PRN (06:12)
[2016-05-01] MEDS ORDERED: PROMETHAZINE HCL INJ 25 MG/1 ML VIAL IV PRN ×3 (06:12→06:56)
[2016-05-01] MEDS ORDERED: MORPHINE SULFATE 10 MG/ML INJ IV PRN ×2 (06:12→06:56)
[2016-05-01] MEDS ORDERED: ACETAMINOPHEN 100 ML IV ONE (06:34)
[2016-05-01] MEDS ORDERED: OXYCODONE-ACETAMINOPHEN 5-325 MG TABLET PO PRN (06:56)
[2016-05-01] MEDS ORDERED: ACETAMINOPHEN 325 MG TABLET PO PRN (06:56)
[2016-05-01] MEDS ORDERED: SIMETHICONE 80 MG TAB.CHEW PO PRN (06:56)
[2016-05-01] MEDS ORDERED: ACETAMINOPHEN 100 ML IV PRN (06:56)
[2016-05-01] MEDS ORDERED: OXYTOCIN/NORMAL SALINE 1,000 ML IV PRN (06:56)
[2016-05-01] MEDS ORDERED: MEASLES,MUMPS&RUBELLA VACC/PF 0.5 ML VIAL SUBCUT PRN (06:56)
[2016-05-01] MEDS ORDERED: DIPH/PERTUSS(ACELL)/TETANUS VAC/PF 0.5 ML SYR (>=10YO) IM PRN (06:56)
--- NOTE | 2016-05-01 07:31 | Delivery Summary ---
Del Sum A-C Datetime Report Generated by CPN: 05/01/2016 07:30 ADMISSION DATA Chief Complaint: Uterine Contractions Indication for Induction: Not Applicable Admission Impression: Term, Intrauterine ; Active Labor DELIVERY PERSONNEL Delivery Doctor:: Angélica Ellis MD Anesthesiologist:: Wanda Tatum MD WOMEN'S STUDIES PROFESSOR:: Yolanda Sanchez CRNA Labor and Delivery Nurse:: Corine Triplett RN Neonatal Nurse Practitioner:: LAURIE Woody Nursery Nurse:: Florenec [place], RN Registered Nurse Nursery/[employer]: Dwayne Ertel, [employer] MATERNAL INFORMATION Delivery Anesthesia: Epidural Medications After Delivery: Other-Please Comment Meds After Delivery Comment: pitocin 20 units in 1000 mL NSS x2 after delivery Estimated Blood Loss (ml): 600 Maternal Complications: Abnormal Cord Length LABOR SUMMARY EDC: 05/01/2016 00:00 No. Babies in Womb: 1 Attempted: No Labor Anesthesia: Epidural LABOR INFORMATION Reason for Induction: Not Applicable Onset of Labor: 05/01/2016 18:26 Oxytocin: Augmentation Group B Beta Strep: Negative MEMBRANES Membranes Rupture Method: Artificial Rupture of Membranes: 04/30/2016 18:33 Length of Rupture (hr): -12.70 Amniotic Fluid Color: Light Meconium Amniotic Fluid Amount: Large Amniotic Fluid Odor: Normal STAGES OF LABOR Stage 3 hr: 0 Stage 3 min: 1 Total Time in Labor hr: -36 Total Time in Labor min: -34 VAGINAL DELIVERY Episiotomy: None Laceration Extension: N/A Laceration Type: None CSECTION DELIVERY Primary Indication: Failure of Descent CSection Urgency: Non-Scheduled CSection Incidence: N/A Labor: Labor Elective: N/A CSection Incision: Lower Uterine Transverse BABY A INFORMATION Infant Delivery Date/Time: 04/30/2016 05:51 Method of Delivery: Born in Route : No : N/A Forceps: N/A Vacuum Extraction: N/A Shoulder Dystocia : No PRESENTATION/POSITION BABY A Presentation: Cephalic Cephalic Presentation: Vertex PLACENTA INFORMATION BABY A Placenta Delivery Time : 04/30/2016 05:52 Placenta Method of Delivery: Manual Removal Placenta Status: Delivered SCORES BABY A Heart Rate 1 min: >100 bpm Resp Effort 1 min: Good Cry Reflex Irritability 1 min: Cough or Sneeze or Pulls Away Muscle Tone 1 min: Active Motion Color 1 min: Body Gaffney, Extremities Blue SCORE 1 MIN: 9 Heart Rate 5 min: >100 bpm Resp Effort 5 min: Good Cry Reflex Irritability 5 min: Cough or Sneeze or Pulls Away Muscle Tone 5 min: Active Motion Color 5 min: Body Gaffney, Extremities Blue SCORE 5 MIN: 9 INFANT INFORMATION BABY A Gestational Age at Delivery: 40.0 Gestational Status: Full Term- 39- 40.6 Weeks Infant Outcome : Liveborn Condition : Stable Infant Sex: Male WEIGHT/LENGTH BABY A Birthweight (gm): 4200 Weight (lb): 9 Weight (oz): 4 Infant Length (in): 21.25 Length (cm): 53.98 CORD INFORMATION BABY A No. Cord Vessels: 3 Nuchal Cord : N/A Nuchal Cord- Other: 0 Cord Blood Taken: Yes-For Eval (Mom's Blood Type - or O+) Suction: Mouth; Nose ASSESSMENT BABY A Infant Complications: Meconium Physical Findings at Delivery: Within Normal Limits Respirations: Appears Normal Skin to Skin: Yes Infant Care By: Aquilino Camacho RN and Asad Urrutia, CNNP Transferred To: [facility] BABY B INFORMATION : N/A
--- NOTE | 2016-05-01 08:00 | L&D Flow Sheet ---
LD Flowsheet Datetime Report Generated by CPN: 05/01/2016 08:00 Datetime: 05/01/2016 07:37 NBP Sys/Gemma/Mean (mmHg): 112 (QS system process) : 56 (QS system process) : 79 (QS system process) Pulse: 68 (QS system process) Datetime: 05/01/2016 07:22 NBP Sys/Gemma/Mean (mmHg): 115 (QS system process) : 56 (QS system process) : 78 (QS system process) Pulse: 75 (QS system process) Datetime: 05/01/2016 07:15 Stage of : Recovery (Florence Julito, RN) Pain Scale: 0 (Florence Julito, RN) Pain Presence: None/Denies (Florence Vila, RN) Pain Type: N/A (Florence Vila, RN) Datetime: 05/01/2016 07:07 NBP Sys/Gemma/Mean (mmHg): 116 (QS system process) : 53 (QS system process) : 77 (QS system process) Pulse: 89 (QS system process) Datetime: 05/01/2016 06:51 Pulse: 100 (QS system process) SpO2 (%): 94 (QS system process) Datetime: 05/01/2016 06:48 NBP Sys/Gemma/Mean (mmHg): 120 (QS system process) : 56 (QS system process) : 81 (QS system process) Pulse: 86 (QS system process) Datetime: 05/01/2016 06:46 Pulse: 90 (QS system process) SpO2 (%): 100 (QS system process) Datetime: 05/01/2016 06:43 NBP Sys/Gemma/Mean (mmHg): 112 (QS system process) : 54 (QS system process) : 77 (QS system process) Pulse: 84 (QS system process) Datetime: 05/01/2016 06:41 Pulse: 87 (QS system process) SpO2 (%): 98 (QS system process) Datetime: 05/01/2016 06:40 Pain Presence: None/Denies (Kavita Stacie, RN) Datetime: 05/01/2016 06:38 NBP Sys/Gemma/Mean (mmHg): 120 (QS system process) : 56 (QS system process) : 80 (QS system process) Pulse: 82 (QS system process) Datetime: 05/01/2016 06:36 Pulse: 81 (QS system process) SpO2 (%): 98 (QS system process) Datetime: 05/01/2016 06:32 NBP Sys/Gemma/Mean (mmHg): 116 (QS system process) : 53 (QS system process) : 77 (QS system process) Pulse: 80 (QS system process) Datetime: 05/01/2016 06:31 Stage of : Recovery (Kavita Quinones, RN) Datetime: 05/01/2016 05:44 Procedure Type: c/s (Kavita Quinones, RN) Procedure Verify: Correct Patient Identity; Correct Side and Site are Marked; Accurate Procedure Consent Form; Agreement on Procedure to be Done; Correct Patient Position; Relevant Images and Results are Properly Labeled and Displayed; Addressed Need to Administer Antibiotics or Fluids for Irrigation; Safety Precautions Based on Patient History or Medication Use (Kavita Quinones, RN) Datetime: 05/01/2016 05:33 Communication Comments: Out of room to OR via bed. ([facility], RN) Datetime: 05/01/2016 05:32 Comments: monitors discontinued, pt to OR via stretcher at 0533 (Kavita Stacie, RN) Datetime: 05/01/2016 05:30 Monitor Mode: External (Kavita Stacie, RN) Frequency (min): 3-4 (Kavita Stacie, RN) Quality: Strong (Kavita Stacie, RN) Duration (sec): 40-70 (Kavita Stacie, RN) Resting Tone (Palpate): Relaxed (Kavita Stacie, RN) Monitor Mode: External US (Kavita Stacie, RN) FHR Baseline Rate : 135 (Kavita Stacie, RN) Variability: Moderate 6-25 bpm (Kavita Stacie, RN) Accelerations: 15X15 (Kavita Stacie, RN) Decelerations: None (Kavita Stacie, RN) Medication Comments: ancef 2 gm IVPB (Kavita Stacie, RN) Datetime: 05/01/2016 05:27 NBP Sys/Gemma/Mean (mmHg): 138 (QS system process) : 65 (QS system process) : 94 (QS system process) Pulse: 79 (QS system process) LaborFlag: Labor (QS system process) Datetime: 05/01/2016 05:21 Anesthesia Comments: M McMicheal AGILE JAVA DEVELOPER at bedside bolusing epidural for c/s (Kavita Quinones, RN) Datetime: 05/01/2016 05:18 Temperature (F): 98.1 (Kavita Fallonl, RN) Temperature (C): 36.7 (QS system process) LaborFlag: Labor (QS system process) Datetime: 05/01/2016 05:17 NBP Sys/Gemma/Mean (mmHg): 120 (QS system process) : 63 (QS system process) : 84 (QS system process) Pulse: 91 (QS system process) LaborFlag: Labor (QS system process) Datetime: 05/01/2016 05:15 Monitor Mode: External (Kavita Satcie, RN) Frequency (min): 2-4 (Kavita Stacie, RN) Quality: Strong (Kavita Stacie, RN) Duration (sec): 90-120 (Kavita Stacie, RN) Resting Tone (Palpate): Relaxed (Kavita Stacie, RN) Monitor Mode: External US (Kavita Stacie, RN) FHR Baseline Rate : 135 (Kavita Stacie, RN) Variability: Moderate 6-25 bpm (Kavita Stacie, RN) Accelerations: 15X15 (Kavita Stacie, RN) Decelerations: None (Kavita Stacie, RN) Datetime: 05/01/2016 05:12 Patient Care Comments: osmel wipes to abd (Kavita Stacie, RN) Datetime: 05/01/2016 05:11 Procedures: Consents Signed (Kavita Stacie, RN) Datetime: 05/01/2016 05:07 Medication Comments: bicitra 15 mL PO (Kavita Stacie, RN) Datetime: 05/01/2016 05:06 Patient Care Comments: TEDs and SCDs applied (Kavita Stacie, RN) Datetime: 05/01/2016 05:04 NBP Sys/Gemma/Mean (mmHg): 129 (QS system process) : 68 (QS system process) : 91 (QS system process) Pulse: 87 (QS system process) LaborFlag: Labor (QS system process) Datetime: 05/01/2016 05:00 Monitor Mode: External (Kavita Stacie, RN) Frequency (min): 1-2 (Kavita Stacie, RN) Quality: Strong (Kavita Stacie, RN) Duration (sec): 60-120 (Kavita Stacie, RN) Resting Tone (Palpate): Relaxed (Kavita Stacie, RN) Monitor Mode: External US (Kavita Stacie, RN) FHR Baseline Rate : 135 (Kavita Stacie, RN) Variability: Moderate 6-25 bpm (Kavita Stacie, RN) Accelerations: 15X15 (Kavita Stacie, RN) Decelerations: None (Kavita Stacie, RN) Datetime: 05/01/2016 04:58 Communication Comments: Informed Janell, FAMILY SERVICES WORKER that called for failure to progress. (Leticia Lattibeaudeir, RN) Datetime: 05/01/2016 04:57 Communication Comments: Informed Nsy called for failure to progress. (Leticia Lattibeaudeir, RN) Datetime: 05/01/2016 04:56 Pitocin (milliunit): Pitocin Discontinued (Kavita Quinones RN) Plan of Care: C/S Delivery (Kavita Quinones RN) Communication: RN at Bedside (Kavita Quinones RN) Communication Comments: Informed Drafting Teacher, [place], and [place] that called for failure to progress. (Leticia Ibarra RN) Datetime: 05/01/2016 04:55 Communication: Report Given to @ Dr Ellis (Kavita Quinones RN) Communication Comments: c/s called (Kavita Quinones RN) Datetime: 05/01/2016 04:49 Pain Assessment Comments: Pt states her pain is increasing, like she is "losing her epidural again" (Kavita Quinones RN) Dilatation (cm): 8.0 (Kavita Quinones RN) Effacement (%): 80 (Kavita Quinones RN) Station: -1 (Kavita Quinones RN) Exam by: Sheryl Quinones RN (Kavita Quinones RN) Communication: RN at Bedside (Kavita Quinones RN) LaborFlag: Labor (QS system process) Datetime: 05/01/2016 04:47 NBP Sys/Gemma/Mean (mmHg): 114 (QS system process) : 57 (QS system process) : 79 (QS system process) Pulse: 90 (QS system process) LaborFlag: Labor (QS system process) Datetime: 05/01/2016 04:45 Monitor Mode: External (Kavita Quinones RN) Frequency (min): 1-5 (Kavita Quinones RN) Quality: Strong (Kavita Quinones RN) Duration (sec): 90-100 (Kavita Quinones RN) Resting Tone (Palpate): Relaxed (Kavita Stacie, RN) Monitor Mode: External US (Kavita Stacie, RN) FHR Baseline Rate : 135 (Kavita Stacei, RN) Variability: Moderate 6-25 bpm (Kavita Stacie, RN) Accelerations: 10X10 (Kavita Stacie, RN) Decelerations: None (Kavita Stacie, RN) Datetime: 05/01/2016 04:32 NBP Sys/Gemma/Mean (mmHg): 107 (QS system process) : 58 (QS system process) : 79 (QS system process) Pulse: 90 (QS system process) LaborFlag: Labor (QS system process) Datetime: 05/01/2016 04:30 Monitor Mode: External (Kavita Stacie, RN) Frequency (min): 2-4 (Kavita Stacie, RN) Quality: Strong (Kavita Stacie, RN) Duration (sec): 70-100 (Kavita Stacie, RN) Resting Tone (Palpate): Relaxed (Kavita Stacie, RN) Monitor Mode: External US (Kavita Stacie, RN) FHR Baseline Rate : 135 (Kavita Stacie, RN) Variability: Moderate 6-25 bpm (Kavita Stacie, RN) Accelerations: 15X15 (Kavita Stacie, RN) Decelerations: None (Kavita Stacie, RN) Datetime: 05/01/2016 04:21 Pitocin (milliunit): Pitocin Increased to (milliunits) @ 8 (Kavita Stacie, RN) Patient Position/Activity: Right Lateral (Kavita Stacie, RN) Communication: RN at Bedside (Kavita Stacie, RN) Datetime: 05/01/2016 04:18 NBP Sys/Gemma/Mean (mmHg): 122 (QS system process) : 62 (QS system process) : 86 (QS system process) Pulse: 91 (QS system process) LaborFlag: Labor (QS system process) Datetime: 05/01/2016 04:15 Monitor Mode: External (Kavita Stacie, RN) Frequency (min): 2.5-4 (Kavita Stacie, RN) Quality: Strong (Kavita Stacie, RN) Duration (sec): 70-90 (Kavita Stacie, RN) Resting Tone (Palpate): Relaxed (Kavita Stacie, RN) Monitor Mode: External US (Kavita Stacie, RN) FHR Baseline Rate : 135 (Kavita Stacie, RN) Variability: Moderate 6-25 bpm (Kavita Stacie, RN) Accelerations: 10X10 (Kavita Stacie, RN) Decelerations: None (Kavita Stacie, RN) Datetime: 05/01/2016 04:03 NBP Sys/Gemma/Mean (mmHg): 119 (QS system process) : 61 (QS system process) : 82 (QS system process) Pulse: 85 (QS system process) LaborFlag: Labor (QS system process) Datetime: 05/01/2016 04:00 Monitor Mode: External (Kavita Stacie, RN) Frequency (min): 4-5 (Kavita Stacie, RN) Quality: Strong (Kavita Stacie, RN) Duration (sec): 90-100 (Kavita Stacie, RN) Resting Tone (Palpate): Relaxed (Kavita Stacie, RN) Monitor Mode: External US (Kavita Stacie, RN) FHR Baseline Rate : 135 (Kavita Stacie, RN) Variability: Moderate 6-25 bpm (Kavita Stacie, RN) Accelerations: 10X10 (Kavita Stacie, RN) Decelerations: None (Kavita Stacie, RN) Pitocin (milliunit): Pitocin Remains (milliunits) @ 6 (Kavita Stacie, RN) Datetime: 05/01/2016 03:47 NBP Sys/Gemma/Mean (mmHg): 115 (QS system process) : 58 (QS system process) : 80 (QS system process) Pulse: 92 (QS system process) LaborFlag: Labor (QS system process) Datetime: 05/01/2016 03:45 Monitor Mode: External (Kavita Stacie, RN) Frequency (min): 5-9 (Kavita Stacie, RN) Quality: Strong (Kavita Stacie, RN) Duration (sec): 70-80 (Kavita Stacie, RN) Resting Tone (Palpate): Relaxed (Kavita Stacie, RN) Monitor Mode: External US (Kavita Stacie, RN) FHR Baseline Rate : 130 (Kavita Stacie, RN) Variability: Moderate 6-25 bpm (Kavita Stacie, RN) Accelerations: 15X15 (Kavita Stacie, RN) Decelerations: Early (Kavita Stacie, RN) Pitocin (milliunit): Pitocin Increased to (milliunits) @ 4 (Kavita Stacie, RN) Datetime: 05/01/2016 03:44 Monitor Interventions for UA: [place] Adjusted (Kavita Stacie, RN) Communication: RN at Bedside (Kavita Stacie, RN) Datetime: 05/01/2016 03:33 NBP Sys/Gemma/Mean (mmHg): 116 (QS system process) : 60 (QS system process) : 82 (QS system process) Pulse: 86 (QS system process) LaborFlag: Labor (QS system process) Datetime: 05/01/2016 03:30 Monitor Mode: External (Kavita Stacie, RN) Frequency (min): 3-7 (Kavita Stacie, RN) Quality: Strong (Kavita Stacie, RN) Duration (sec): 50-70 (Kavita Stacie, RN) Resting Tone (Palpate): Relaxed (Kavita Stacie, RN) Monitor Mode: External US (Kavita Stacie, RN) FHR Baseline Rate : 130 (Kavita Stacie, RN) Variability: Moderate 6-25 bpm (Kavita Stacie, RN) Accelerations: 15X15 (Kavita Stacie, RN) Decelerations: Early (Kavita Stacie, RN) Pitocin (milliunit): Pitocin Remains (milliunits) @ 2 (Kavita Stacie, RN) Datetime: 05/01/2016 03:17 NBP Sys/Gemma/Mean (mmHg): 110 (QS system process) : 56 (QS system process) : 80 (QS system process) Pulse: 91 (QS system process) LaborFlag: Labor (QS system process) Datetime: 05/01/2016 03:15 Monitor Mode: External (Kavita Stacie, RN) Frequency (min): 3-5 (Kavita Stacie, RN) Quality: Strong (Kavita Stacie, RN) Duration (sec): 60-120 (Kavita Stacie, RN) Resting Tone (Palpate): Relaxed (Kavita Stacie, RN) Monitor Mode: External US (Kavita Stacie, RN) FHR Baseline Rate : 125 (Kavita Stacie, RN) Variability: Moderate 6-25 bpm (Kavita Stacie, RN) Accelerations: None (Kavita Stacie, RN) Decelerations: Early (Kavita Stacie, RN) Pitocin (milliunit): Pitocin Remains (milliunits) @ 2 (Kavita Quinones, [place]) Datetime: 05/01/2016 03:10 Pitocin (milliunit): Pitocin Started (milliunits) @ 2 (Kavita Quinones RN) Medication Comments: Pitocin restarted per orders from Dr Ellis, on unit (Kavita Quinones RN) Provider Reviewed Strip: Yes (Kavita Quinones RN) Datetime: 05/01/2016 03:02 NBP Sys/Gemma/Mean (mmHg): 119 (QS system process) : 57 (QS system process) : 82 (QS system process) Pulse: 85 (QS system process) LaborFlag: Labor (QS system process) Datetime: 05/01/2016 03:01 NBP Sys/Gemma/Mean (mmHg): 118 (QS system process) : 57 (QS system process) : 82 (QS system process) Pulse: 85 (QS system process) LaborFlag: Labor (QS system process) Datetime: 05/01/2016 03:00 NBP Sys/Gemma/Mean (mmHg): 119 (QS system process) : 59 (QS system process) : 85 (QS system process) Pulse: 92 (QS system process) Monitor Mode: External (Kavita Quinones RN) Frequency (min): 2-4 (Kavita Quinones RN) Quality: Strong (Kavita Quinones RN) Duration (sec): 50-70 (Kavita Quinones, RN) Resting Tone (Palpate): Relaxed (Kavita Quinones, RN) Monitor Mode: External US (Kavita Quinones RN) FHR Baseline Rate : 130 (Kavita Quinones, RN) Variability: Moderate 6-25 bpm (Kavita Quinones, RN) Accelerations: 10X10 (Kavita Quinones, RN) Decelerations: Early (Kavita Quinones, RN) Anesthesia Comments: New epidural bag replaced by Dr Tatum (Kavita Quinones RN) LaborFlag: Labor (QS system process) Datetime: 05/01/2016 02:59 NBP Sys/Gemma/Mean (mmHg): 119 (QS system process) : 58 (QS system process) : 84 (QS system process) Pulse: 87 (QS system process) LaborFlag: Labor (QS system process) Datetime: 05/01/2016 02:58 NBP Sys/Gemma/Mean (mmHg): 128 (QS system process) : 60 (QS system process) : 87 (QS system process) Pulse: 85 (QS system process) LaborFlag: Labor (QS system process) Datetime: 05/01/2016 02:57 NBP Sys/Gemma/Mean (mmHg): 136 (QS system process) : 61 (QS system process) : 88 (QS system process) Pulse: 85 (QS system process) LaborFlag: Labor (QS system process) Datetime: 05/01/2016 02:55 NBP Sys/Gemma/Mean (mmHg): 116 (QS system process) : 60 (QS system process) : 81 (QS system process) Pulse: 95 (QS system process) LaborFlag: Labor (QS system process) Datetime: 05/01/2016 02:54 NBP Sys/Gemma/Mean (mmHg): 114 (QS system process) : 55 (QS system process) : 78 (QS system process) Pulse: 81 (QS system process) Anesthesia Comments: additional [address] Tatum (Kavita Quinones RN) LaborFlag: Labor (QS system process) Datetime: 05/01/2016 02:53 NBP Sys/Gemma/Mean (mmHg): 121 (QS system process) : 61 (QS system process) : 83 (QS system process) Pulse: 86 (QS system process) LaborFlag: Labor (QS system process) Datetime: 05/01/2016 02:52 NBP Sys/Gemma/Mean (mmHg): 139 (QS system process) : 70 (QS system process) : 97 (QS system process) Pulse: 88 (QS system process) LaborFlag: Labor (QS system process) Datetime: 05/01/2016 02:51 Anesthesia Comments: Dr [place] bolusing epidural (Kavita Murillosel, RN) Datetime: 05/01/2016 02:49 NBP Sys/Gemma/Mean (mmHg): 94 (QS system process) : 47 (QS system process) : 64 (QS system process) Pulse: 90 (QS system process) Medication Comments: [address] Tatum (Kavita Quinones, RN) LaborFlag: Labor (QS system process) Datetime: 05/01/2016 02:48 Monitor Interventions for UA: [place] Adjusted (Kavita Quinones, RN) Anesthesia Comments: Dr [place] at bedside (Kavita Quinones, RN) Communication: RN at Bedside (Kavita Quinones, RN) Datetime: 05/01/2016 02:45 Contraction Comments: ADONIS; toco adjusted (Kavita Stacie, RN) Monitor Mode: External US (Kavita Stacie, RN) FHR Baseline Rate : 125 (Kavita Stacie, RN) Variability: Moderate 6-25 bpm (Kavita Stacie, RN) Accelerations: 10X10 (Kavita Stacie, RN) Decelerations: None (Kavita Stacie, RN) Datetime: 05/01/2016 02:33 NBP Sys/Gemma/Mean (mmHg): 112 (QS system process) : 58 (QS system process) : 81 (QS system process) Pulse: 88 (QS system process) LaborFlag: Labor (QS system process) Datetime: 05/01/2016 02:31 Communication: Call/Page Placed to Provider (Kavita Stacie, RN) Communication Comments: Call placed to Dr Tatum for epidural bolus; ETA 10 minutes (Kavita Stacie, RN) Datetime: 05/01/2016 02:30 Monitor Mode: External (Kavita Stacie, RN) Frequency (min): 2-5 (Kavita Stacie, RN) Quality: Strong (Kavita Stacie, RN) Duration (sec): 50-100 (Kavita Stacie, RN) Resting Tone (Palpate): Relaxed (Kavita Stacie, RN) Monitor Mode: External US (Kavita Stacie, RN) FHR Baseline Rate : 125 (Kavita Stacie, RN) Variability: Moderate 6-25 bpm (Kavita Stacie, RN) Accelerations: 15X15 (Kavita Stacie, RN) Decelerations: None (Kavita Stacie, RN) Datetime: 05/01/2016 02:26 Communication: Report Given to @ Dr Ellis (Kavita Stacie, RN) Datetime: 05/01/2016 02:23 Patient Care Comments: [place] cath replaced per orders from Dr Caleb. 240 mL bloody urine discarded. Bloody urine noted in [place] (Kavita Stacie, RN) Datetime: 05/01/2016 02:18 NBP Sys/Gemma/Mean (mmHg): 119 (QS system process) : 65 (QS system process) : 87 (QS system process) Pulse: 88 (QS system process) LaborFlag: Labor (QS system process) Datetime: 05/01/2016 02:15 Monitor Mode: External (Kavita Stacie, RN) Frequency (min): 1.5-6 (Kavita Stacie, RN) Quality: Strong (Kavita Stacie, RN) Duration (sec): 60-100 (Kavita Stacie, RN) Resting Tone (Palpate): Relaxed (Kavita Stacie, RN) Monitor Mode: External US (Kavita Stacie, RN) FHR Baseline Rate : 130 (Kavita Stacie, RN) Variability: Moderate 6-25 bpm (Kavita Stacie, RN) Accelerations: 15X15 (Kavita Stacie, RN) Decelerations: None (Kavita Stacie, RN) Datetime: 05/01/2016 02:12 Communication: Provider Orders Received (Kavita Quinones, RN) Communication Comments: Orders from Dr Ellis for epidural bolus, 100 mcg fentanyl and replace de [place] catheter (Kavita Stacie, RN) Datetime: 05/01/2016 02:10 Dilatation (cm): 8.0 (Kavita Stacie, RN) Exam by: Dr Ellis (Kavita Quinones RN) Vaginal Exam Comments: Mild molding noted by Dr Ellis, swelling not noted to be a problem during Dr Ellis's exam (Kavita Quinones RN) Plan of Care: Plan of Care Discussed; Vaginal Delivery; C/S Delivery (Kavita Quinones RN) Labor/Induction: Augmentation (Kavita Quinones RN) Communication Comments: Dr Ellis at bedside discussing options to proceed (Kavita Quinones RN) Datetime: 05/01/2016 02:05 NBP Sys/Gemma/Mean (mmHg): 125 (QS system process) : 64 (QS system process) : 91 (QS system process) Pulse: 94 (QS system process) LaborFlag: Labor (QS system process) Datetime: 05/01/2016 02:00 Monitor Mode: External (Kavita Quinones RN) Frequency (min): 2-4 (Kavita Quinones RN) Quality: Strong (Kavita Quinones RN) Duration (sec): 60-100 (Kavita Quinones RN) Resting Tone (Palpate): Relaxed (Kavita Quinones RN) Monitor Mode: External US (Kavita Quinones RN) FHR Baseline Rate : 135 (Kavita Quinones RN) Variability: Moderate 6-25 bpm (Kavita Quinones RN) Accelerations: 10X10 (Kavita Quinones RN) Decelerations: None (Kavita Quinones RN) Datetime: 05/01/2016 01:59 Communication: Call/Page Placed to Provider; Report Given to @ DR Ellis (Kavita Quinones RN) Datetime: 05/01/2016 01:58 Dilatation (cm): 7.0 (Kavita Quinones RN) Effacement (%): 70 (Kavita Quinones RN) Station: -1 (Kavita Quinones RN) Exam by: Sheryl Quinones RN (Kavita Quinones RN) Vaginal Exam Comments: Pt reporting pressure; cervical swelling noted (Kavita Stacie, RN) Datetime: 05/01/2016 01:49 NBP Sys/Gemma/Mean (mmHg): 125 (QS system process) : 79 (QS system process) : 93 (QS system process) Pulse: 92 (QS system process) LaborFlag: Labor (QS system process) Datetime: 05/01/2016 01:45 Monitor Mode: External (Kavita Stacie, RN) Frequency (min): 2-4 (Kavita Stacie, RN) Quality: Strong (Kavita Stacie, RN) Duration (sec): 50-100 (Kavita Stacie, RN) Resting Tone (Palpate): Relaxed (Kavita Staice, RN) Monitor Mode: External US (Kavita Stacie, RN) FHR Baseline Rate : 135 (Kavita Stacie, RN) Variability: Moderate 6-25 bpm (Kavita Stacie, RN) Accelerations: 15X15 (Kavita Stacie, RN) Decelerations: None (Kavita Stacie, RN) Datetime: 05/01/2016 01:42 Hygiene: Underpad Changed (Kavita Stacie, RN) Communication: RN at Bedside (Kavita Stacie, RN) Datetime: 05/01/2016 01:33 NBP Sys/Gemma/Mean (mmHg): 129 (QS system process) : 77 (QS system process) : 98 (QS system process) Pulse: 95 (QS system process) LaborFlag: Labor (QS system process) Datetime: 05/01/2016 01:30 Monitor Mode: External (Kavita Stacie, RN) Frequency (min): 2-4 (Kavita Stacie, RN) Quality: Strong (Kavita Stacie, RN) Duration (sec): 70-90 (Kavita Stacie, RN) Resting Tone (Palpate): Relaxed (Kavita Stacie, RN) Monitor Mode: External US (Kavita Stacie, RN) FHR Baseline Rate : 135 (Kavita Stacie, RN) Variability: Moderate 6-25 bpm (Kavita Stacie, RN) Accelerations: 10X10 (Kavita Stacie, RN) Decelerations: Early (Akvita Stacie, RN) Datetime: 05/01/2016 01:22 Pain Scale: 4 (Kavita Stacie, RN) Pain Assessment Comments: pt reports "a little" pain relief (Kavita Stacie, RN) LaborFlag: Labor (QS system process) Datetime: 05/01/2016 01:19 NBP Sys/Gemma/Mean (mmHg): 123 (QS system process) : 67 (QS system process) : 89 (QS system process) Pulse: 90 (QS system process) LaborFlag: Labor (QS system process) Datetime: 05/01/2016 01:15 Monitor Mode: External (Kavita Stacie, RN) Frequency (min): 1-4 (Kavita Stacie, RN) Quality: Strong (Kavita Stacie, RN) Duration (sec): 60-100 (Kavita Stacie, RN) Resting Tone (Palpate): Relaxed (Kavita Stacie, RN) Monitor Mode: External US (Kavita Stacie, RN) FHR Baseline Rate : 145 (Kavita Stacie, RN) Variability: Moderate 6-25 bpm (Kavita Stacie, RN) Accelerations: 15X15 (Kavita Stacie, RN) Decelerations: Early (Kavita Stacie, RN) Datetime: 05/01/2016 01:04 NBP Sys/Gemma/Mean (mmHg): 122 (QS system process) : 92 (QS system process) : 103 (QS system process) Pulse: 93 (QS system process) Medication Comments: nubain 10 mg IV; pt refusing zofran at this time. Does not wish for RN to request alternate nausea relief from MD (Kavita Quinones RN) LaborFlag: Labor (QS system process) Datetime: 05/01/2016 01:00 Monitor Mode: External; Palpation (Kavita Stacie, RN) Frequency (min): 2-3 (Kavita Stacie, RN) Quality: Strong (Kavita Stacie, RN) Duration (sec): 70-110 (Kavita Stacie, RN) Resting Tone (Palpate): Relaxed (Kavita Stacie, RN) Monitor Mode: External US (Kavita Stacie, RN) FHR Baseline Rate : 145 (Kavita Stacie, RN) Variability: Moderate 6-25 bpm (Kavita Stacie, RN) Accelerations: 10X10 (Kavita Stacie, RN) Decelerations: Late (Kavita Stacie, RN) Datetime: 05/01/2016 00:56 Patient Position/Activity: Left Lateral (Kavita Quinones RN) Datetime: 05/01/2016 00:55 Communication: Provider Orders Received; Report Given to @ Dr Ellis (Kavita Quinones RN) Communication Comments: Orders for nubain 10 mg IV and zofran 8 mg ODT, benadryl 25 mg PO for previous adverse reaction (Kavita Quinones RN) Datetime: 05/01/2016 00:53 Pain Assessment Comments: Pt calling out, reporting shooting pain during ctx in abd and left leg (Kavita Quinones RN) Dilatation (cm): 8.0 (Kavita Quinones RN) Effacement (%): 80 (Kavita Quinones RN) Station: 0 (Kavita Quinones RN) Exam by: Sheryl Quinones RN (Kavita Quinones RN) Anesthesia Level Check: T12 (Kavita Quinones RN) LaborFlag: Labor (QS system process) Datetime: 05/01/2016 00:49 NBP Sys/Gemma/Mean (mmHg): 131 (QS system process) : 67 (QS system process) : 93 (QS system process) Pulse: 100 (QS system process) LaborFlag: Labor (QS system process) Datetime: 05/01/2016 00:45 Monitor Mode: External (Kavita Stacie, RN) Frequency (min): 2-5 (Kavita Stacie, RN) Quality: Moderate to Strong (Kavita Stacie, RN) Duration (sec): 70-100 (Kavita Stacie, RN) Resting Tone (Palpate): Relaxed (Kavita Stacie, RN) Monitor Mode: External US (Kavita Stacie, RN) FHR Baseline Rate : 150 (Kavita Stacie, RN) Variability: Moderate 6-25 bpm (Kavita Stacie, RN) Accelerations: None (Kavita Stacie, RN) Decelerations: None (Kavita Stacie, RN) Datetime: 05/01/2016 00:35 NBP Sys/Gemma/Mean (mmHg): 132 (QS system process) : 58 (QS system process) : 83 (QS system process) Pulse: 105 (QS system process) LaborFlag: Labor (QS system process) Datetime: 05/01/2016 00:30 Monitor Mode: External (Kavita Stacie, RN) Frequency (min): 2-3 (Kavita Stacie, RN) Quality: Moderate to Strong (Kavita Stacie, RN) Duration (sec): 60-100 (Kavita Stacie, RN) Resting Tone (Palpate): Relaxed (Kavita Stacie, RN) Monitor Mode: External US (Kavita Stacie, RN) FHR Baseline Rate : 155 (Kavita Stacie, RN) Variability: Moderate 6-25 bpm (Kavita Stacie, RN) Accelerations: 10X10 (Kavita Stacie, RN) Decelerations: None (Kavita Stacie, RN) Datetime: 05/01/2016 00:18 NBP Sys/Gemma/Mean (mmHg): 107 (QS system process) : 65 (QS system process) : 80 (QS system process) Pulse: 100 (QS system process) LaborFlag: Labor (QS system process) Datetime: 05/01/2016 00:16 Actions for Decelerations: Provider Notified (Kavita Quinones RN) Communication: Report Given to @ Dr Ellis (Kavita Quinones RN) Communication Comments: Report to Dr Ellis re: FHR strip, SVE. Orders to continue to monitor pt (Kavita Quinones RN) Datetime: 05/01/2016 00:15 Monitor Mode: External (Kavita Stacie, RN) Frequency (min): 1-4 (Kavita Stacie, RN) Quality: Moderate to Strong (Kavita Stacie, RN) Duration (sec): 60-110 (Kavita Stacie, RN) Resting Tone (Palpate): Relaxed (Kavita Stacie, RN) Monitor Mode: External US (Kavita Stacie, RN) FHR Baseline Rate : 145 (Kavita Stacie, RN) Variability: Moderate 6-25 bpm (Kavita Stacie, RN) Accelerations: 15X15 (Kavita Stacie, RN) Decelerations: None (Kavita Stacie, RN) Datetime: 05/01/2016 00:10 Patient Position/Activity: Tailors (Kavita Stacie, RN) Datetime: 05/01/2016 00:08 Dilatation (cm): 7.5 (Kavita Stacie, RN) Effacement (%): 80 (Kavita Stacie, RN) Station: 0 (Kavita Stacie, RN) Exam by: Sheryl Quinones RN (Kavita Stacie, RN) Datetime: 05/01/2016 00:03 NBP Sys/Gemma/Mean (mmHg): 99 (QS system process) : 54 (QS system process) : 71 (QS system process) Pulse: 98 (QS system process) LaborFlag: Labor (QS system process) Datetime: 05/01/2016 00:00 Monitor Mode: External (Kavita Stacie, RN) Frequency (min): 2-4 (Kavita Stacie, RN) Quality: Moderate to Strong (Kavita Stacie, RN) Duration (sec): 80-110 (Kavita Stacie, RN) Resting Tone (Palpate): Relaxed (Kavita Stacie, RN) Monitor Mode: External US (Kavita Stacie, RN) FHR Baseline Rate : 150 (Kavita Stacie, RN) Variability: Moderate 6-25 bpm (Kavita Stacie, RN) Accelerations: 15X15 (Kavita Stacie, RN) Decelerations: Late (Kavita Stacie, RN) Datetime: 04/30/2016 23:49 NBP Sys/Gemma/Mean (mmHg): 99 (QS system process) : 54 (QS system process) : 71 (QS system process) Pulse: 95 (QS system process) LaborFlag: Labor (QS system process) Datetime: 04/30/2016 23:47 Patient Position/Activity: Right Lateral; Semi-Fowlers (Kavita Stacie, RN) Datetime: 04/30/2016 23:45 Monitor Mode: External (Kavita Stacie, RN) Frequency (min): 1.5-4 (Kavita Stacie, RN) Quality: Moderate to Strong (Kavita Stacie, RN) Duration (sec): 60-100 (Kavita Stacie, RN) Resting Tone (Palpate): Relaxed (Kavita Stacie, RN) Monitor Mode: External US (Kavita Stacie, RN) FHR Baseline Rate : 155 (Kavita Stacie, RN) Variability: Moderate 6-25 bpm (Kavita Stacie, RN) Accelerations: 15X15 (Kavita Stacie, RN) Decelerations: Late (Kavita Stacie, RN) Datetime: 04/30/2016 23:34 IV/Blood Work: New IV Bag Hung (Crystal Woolford, RN) Datetime: 04/30/2016 23:33 NBP Sys/Gemma/Mean (mmHg): 91 (QS system process) : 46 (QS system process) : 67 (QS system process) Pulse: 90 (QS system process) LaborFlag: Labor (QS system process) Datetime: 04/30/2016 23:30 Monitor Mode: External (Kavita Stacie, RN) Frequency (min): 2-4 (Kavita Stacie, RN) Quality: Moderate to Strong (Kavita Stacie, RN) Duration (sec): 70-110 (Kavita Stacie, RN) Resting Tone (Palpate): Relaxed (Kavita Stacie, RN) Monitor Mode: External US (Kavita Stacie, RN) FHR Baseline Rate : 155 (Kavita Stacie, RN) Variability: Moderate 6-25 bpm (Kavita Stacie, RN) Accelerations: 15X15 (Kavita Stacie, RN) Decelerations: Late (Kavita Stacie, RN) Datetime: 04/30/2016 23:20 NBP Sys/Gemma/Mean (mmHg): 98 (QS system process) : 50 (QS system process) : 70 (QS system process) Pulse: 85 (QS system process) LaborFlag: Labor (QS system process) Datetime: 04/30/2016 23:15 Monitor Mode: External (Kavita Stacie, RN) Frequency (min): 2-3 (Kavita Stacie, RN) Quality: Moderate to Strong (Kavita Stacie, RN) Duration (sec): 70-90 (Kavita Stacie, RN) Resting Tone (Palpate): Relaxed (Kavita Stacie, RN) Monitor Mode: External US (Kavita Stacie, RN) FHR Baseline Rate : 155 (Kavita Stacie, RN) Variability: Moderate 6-25 bpm (Kavita Stacie, RN) Accelerations: 15X15 (Kavita Stacie, RN) Decelerations: Late (Kavita Stacie, RN) Datetime: 04/30/2016 23:12 Comments: O2 d/c (Corine Triplett RN) Instructional Method: Verbal; Patient Instructed; Family/Support Person Instructed; Verbalized Understanding (Corine Triplett RN) Plan of Care: Plan of Care Discussed (Corien Triplett RN) Unit Routine: Monitoring (Corine Triplett RN) Labor/Induction: Interventions (Corine Triplett RN) Datetime: 04/30/2016 23:05 Actions for Decelerations: Provider Notified (Kavita Quinones RN) Communication: Report Given to @ Dr Ellis (Kavita Quinones RN) Communication Comments: Report re: recurrent lates, interventions for FHR decelerations. Instructions to continue to monitor, will update on progress/ FHR (Kavita Quinones RN) Datetime: 04/30/2016 23:04 Patient Position/Activity: Right Lateral (Corine Triplett RN) Datetime: 04/30/2016 23:00 Monitor Mode: External; Palpation (Corine Vitrano, RN) Frequency (min): 2-4 (Corine Vitrano, RN) Quality: Moderate to Strong (Corine Vitrano, RN) Duration (sec): 50-80 (Corine Vitrano, RN) Duration Criteria: Less than Two 120 Second Contractions (Corine Vitrano, RN) Pattern: Normal: <= 5 Contractions in 10 Minutes (Corine Vitrano, RN) Resting Tone (Palpate): Relaxed (Corine Vitrano, RN) Monitor Mode: External US (Corine Vitrano, RN) FHR Baseline Rate : 150 (Corine Vitrano, RN) Variability: Moderate 6-25 bpm (Corine Vitrano, RN) Accelerations: 15X15 (Corine Vitrano, RN) Decelerations: Late (Corine Vitrano, RN) Actions for Decelerations: Oxygen Applied (Kavita Stacie, RN) Datetime: 04/30/2016 22:59 Actions for Decelerations: Pitocin Off; IV Bolus (Kavita Stacie, RN) Datetime: 04/30/2016 22:54 Patient Position/Activity: Right Tilt; Semi-Fowlers (Corine Vitrano, RN) Datetime: 04/30/2016 22:48 NBP Sys/Gemma/Mean (mmHg): 95 (QS system process) : 53 (QS system process) : 70 (QS system process) Pulse: 98 (QS system process) Respirations: 16 (Corine Vitrano, RN) LaborFlag: Labor (QS system process) Datetime: 04/30/2016 22:47 I/O Interventions: Clear Liquids Given (Corine Vitrano, RN) Datetime: 04/30/2016 22:45 Monitor Mode: External (Corine Vitrano, RN) Frequency (min): 2-3 (Corine Vitrano, RN) Quality: Moderate to Strong (Corine Vitrano, RN) Duration (sec): 50-100 (Corine Vitrano, RN) Duration Criteria: Less than Two 120 Second Contractions (Corine Vitrano, RN) Pattern: Normal: <= 5 Contractions in 10 Minutes (Corine Vitrano, RN) Resting Tone (Palpate): Relaxed (Corine Vitrano, RN) Monitor Mode: External US (Corine Vitrano, RN) FHR Baseline Rate : 150 (Corine Vitrano, RN) Variability: Moderate 6-25 bpm (Corine Vitrano, RN) Accelerations: 10X10 (Corine Vitrano, RN) Decelerations: Late (Corine Vitrano, RN) Pitocin (milliunit): Pitocin Remains (milliunits) @ 4 (Corine Vitrano, RN) Datetime: 04/30/2016 22:44 Patient Position/Activity: Right Lateral; Peanut Ball (Corine Vitrano, RN) Datetime: 04/30/2016 22:33 NBP Sys/Gemma/Mean (mmHg): 104 (QS system process) : 56 (QS system process) : 75 (QS system process) Pulse: 100 (QS system process) Respirations: 16 (Corine Vitrano, RN) LaborFlag: Labor (QS system process) Datetime: 04/30/2016 22:30 Monitor Mode: External (Corine Vitrano, RN) Frequency (min): 2-3 (Corine Vitrano, RN) Quality: Moderate to Strong (Corine Vitrano, RN) Duration (sec): 50-80 (Corine Vitrano, RN) Duration Criteria: Less than Two 120 Second Contractions (Corine Vitrano, RN) Pattern: Normal: <= 5 Contractions in 10 Minutes (Corine Vitrano, RN) Resting Tone (Palpate): Relaxed (Corine Vitrano, RN) Monitor Mode: External US (Corine Vitrano, RN) FHR Baseline Rate : 150 (Corine Vitrano, RN) Variability: Moderate 6-25 bpm (Corine Vitrano, RN) Accelerations: 15X15 (Corine Vitrano, RN) Decelerations: Late (Corine Vitrano, RN) Pitocin (milliunit): Pitocin Remains (milliunits) @ 4 (Corine Vitrano, RN) Datetime: 04/30/2016 22:21 Patient Position/Activity: Left Lateral; Peanut Ball (Corine Vitrano, RN) Datetime: 04/30/2016 22:20 Dilatation (cm): 7.0 (Corine Vitrano, RN) Effacement (%): 80 (Corine Vitrano, RN) Station: -1 (Corine Vitrano, RN) Exam by: Pilo Triplett RN (Corine Vitrano, RN) Pitocin (milliunit): Pitocin Increased to (milliunits) @ 4 (Corine Vitrano, RN) Datetime: 04/30/2016 22:19 NBP Sys/Gemma/Mean (mmHg): 99 (QS system process) : 56 (QS system process) : 73 (QS system process) Pulse: 115 (QS system process) Respirations: 16 (Corine Vitrano, RN) LaborFlag: Labor (QS system process) Datetime: 04/30/2016 22:15 Monitor Mode: External (Corine Vitrano, RN) Frequency (min): 3-5 (Corine Vitrano, RN) Quality: Moderate to Strong (Corine Vitrano, RN) Duration (sec): 50-70 (Corine Vitrano, RN) Duration Criteria: Less than Two 120 Second Contractions (Corine Vitrano, RN) Pattern: Normal: <= 5 Contractions in 10 Minutes (Corine Vitrano, RN) Resting Tone (Palpate): Relaxed (Corine Vitrano, RN) Monitor Mode: External US (Corine Vitrano, RN) FHR Baseline Rate : 150 (Corine Vitrano, RN) Variability: Moderate 6-25 bpm (Corine Vitrano, RN) Accelerations: 15X15 (Corine Vitrano, RN) Decelerations: None (Corine Vitrano, RN) Pitocin (milliunit): Pitocin Remains (milliunits) @ 2 (Corine Vitrano, RN) Datetime: 04/30/2016 22:02 IV/Blood Work: IV Infusing per Order (Corine Vitrano, RN) Patient Care Comments: 125 mL/hour (Corine Vitrano, RN) Datetime: 04/30/2016 22:00 Monitor Mode: External; Palpation (Corine Vitrano, RN) Frequency (min): 2-3.5 (Corine Vitrano, RN) Quality: Moderate to Strong (Corine Vitrano, RN) Duration (sec): 50-80 (Corine Vitrano, RN) Duration Criteria: Less than Two 120 Second Contractions (Corine Vitrano, RN) Pattern: Normal: <= 5 Contractions in 10 Minutes (Corine Vitrano, RN) Resting Tone (Palpate): Relaxed (Corine Vitrano, RN) Monitor Mode: External US (Corine Vitrano, RN) FHR Baseline Rate : 145 (Corine Vitrano, RN) Variability: Moderate 6-25 bpm (Corine Vitrano, RN) Accelerations: 10X10 (Cornie Triplett RN) Decelerations: None (Corine Triplett RN) Pitocin (milliunit): Pitocin Started (milliunits) @ 2; Pitocin 20 Units in 1000ml NS (Corine Triplett RN)
[2016-05-01] MEDS ORDERED: METOCLOPRAMIDE HCL INJ/PF 10 MG/2 ML SDV ONE (08:03)
[2016-05-01] MEDS ORDERED: DEXAMETHASONE SOD PHOSPHATE INJ 4 MG/1 ML VIAL ONE (08:03)
[2016-05-01] MEDS ORDERED: KETOROLAC TROMETHAMINE 60 MG/2 ML SDV ONE (08:03)
[2016-05-01] MEDS ORDERED: PHENYLEPHRINE HCL INJ/PF 10 MG/1 ML SDV ONE (08:03)
--- NOTE | 2016-05-01 08:05 | Admission Physical ---
Datetime Report Generated by CPN: 05/01/2016 08:05 CURRENT ADMISSION Chief Complaint: Uterine Contractions Indication for Induction: Not Applicable Admit Plan: Admit to Unit; Initiate Labor Augmentation Protocol ALLERGIES Medication Allergies: Yes Medication Allergies: ondansetron (04/30/2016) Medication Allergies: No Known Allergies (04/30/2016) Medication Allergies: No Known Allergies (04/28/2016) Latex: No Latex Allergies Food Allergies: N/A Environmental Allergies: N/A OBSTETRICAL HISTORY EDC: 05/01/2016 00:00 : 2 Para: 0 Term: 0 : 0 SAB: 1 IAB: 0 Ectopic: 0 Livin Cesareans: 0 VBACs: 0 Multiple Births: 0 Gestational Diabetes: No Rh Sensitization: No Incompetent Cervix: No RITIKA: No Infertility: No ART Treatment: No Uterine Anomaly: No IUGR: No Hx Previous C/S: No Macrosomia: No Hx Loss/Stillborn: No PIH: No Hx : No Placenta Previa/Abruption: No Depression/PP Depression: No PTL/PROM: No Post Hemorrhage: No Obstetrical History Comments: G1: SAB 5 weeks G2: Current SEE RECORDS Alcohol: No Marijuana : No Cocaine: No Other Illicit Drugs: No Cigarettes: Never Smoker. [id number] MEDICAL HISTORY Diabetes: No Blood Transfusion: No Pulmonary Disease (Asthma, TB): No Breast Disease: No Hypertension: No Electrical Equipment Technician Surgery: No Heart Disease: No Hosp/Surgery: No Autoimmune Disorder: No Anesthetic Complications: No Kidney Disease: No Abnormal Pap Smear: Yes Neuro/Epilepsy: No Psychiatric Disorders: No Other Medical Diseases: No Hepatitis/Liver Disease: No Significant Family History: No Varicosities/Phlebitis: No Trauma/Violence : No Thyroid Dysfunction: No Medical History Comments: Abnormal Pap: 2006, No LEEP INFECTIOUS HISTORY Gonorrhea: No Genital Herpes: No Chlamydia: No Tuberculosis: No Syphilis: No Hepatitis: No HIV/AIDS Exposure: No Rash or Viral Illness: No HPV: No PHYSICAL EXAM General: Normal HEENT: Normal Neurologic: Normal Thyroid: Normal Heart: Normal Lungs: Normal Breast: Normal Back: Normal Abdomen: Normal Genitourinary Exam: Normal Extremities: Normal DTRs: Normal Pelvic Type: Adequate VAGINAL EXAM Dilatation: 6 Effacement: 90 Station: -1 Contraction Comments: every 2 min MEMBRANES Membranes: Ruptured Amniotic Fluid Color: Meconium, Light FETUS A EGA: 39.6 Monitoring: External US FHR- Baseline: 130 Variability: Moderate 6-25bpm Accelerations: 10X10 Decelerations: None FHR Category: Category I Estimated Weight (gm): 3600 Presentation: Vertex PLANS FOR LABOR AND DELIVERY Labor and Delivery: None Pain Management: Natural Feeding Preference: Breast Benefit of Breast Feed Discussed: Yes Circumcision: Yes INFORMED CONSENT Informed Consent Obtained: Vaginal Delivery Signature: with User ID: [email or web address]
[2016-05-01] MEDS: OXYCODONE-ACETAMINOPHEN 5-325 MG TABLET PO PRN ×3 (09:03→23:03)
[2016-05-01] MEDS: PRENATAL VITAMIN W-O CA NO5/FE FUMARATE/FA CAPSULE PO SCH (10:07)
[2016-05-01] MEDS: DOCUSATE SODIUM 100 MG CAPSULE PO SCH ×2 (10:07→17:37)
[2016-05-01] MEDS: RINGERS SOLUTION,LACTATED 1,000 ML IV PRN (10:12)
[2016-05-01] MEDS: KETOROLAC TROMETHAMINE INJ/PF 30 MG/1 ML SDV IV SCH ×2 (13:32→21:21)
--- NOTE | 2016-05-01 19:01 | L&D Flow Sheet ---
LD Flowsheet Datetime Report Generated by CPN: 05/01/2016 19:00 Datetime: 05/01/2016 07:45 Stage of : Recovery (Florence Julito, RN) Pain Scale: 0 (Florence Vila, RN) Pain Presence: None/Denies (Florence Vila, RN) Pain Type: N/A (Florence Vila, RN) Datetime: 05/01/2016 07:37 NBP Sys/Gemma/Mean (mmHg): 112 (QS system process) : 56 (QS system process) : 79 (QS system process) Pulse: 68 (QS system process) Datetime: 05/01/2016 07:30 Stage of : Recovery (Florence Vila, RN) Pain Scale: 0 (Florence Vila, RN) Pain Presence: None/Denies (Florence Vila, RN) Pain Type: N/A (Florence Vila, RN) Datetime: 05/01/2016 07:22 NBP Sys/Gemma/Mean (mmHg): 115 (QS system process) : 56 (QS system process) : 78 (QS system process) Pulse: 75 (QS system process) Datetime: 05/01/2016 07:15 Stage of : Recovery (Florence Vila RN) Pain Scale: 0 (Florence Vila RN) Pain Presence: None/Denies (Florence Vila RN) Pain Type: N/A (Florence Vila RN) Datetime: 05/01/2016 07:07 NBP Sys/Gemma/Mean (mmHg): 116 (QS system process) : 53 (QS system process) : 77 (QS system process) Pulse: 89 (QS system process)
[2016-05-02] MEDS: KETOROLAC TROMETHAMINE INJ/PF 30 MG/1 ML SDV IV SCH (05:50)
--- NOTE | 2016-05-02 06:00 | L&D Current Admission ---
Current Admit Datetime Report Generated by CPN: 05/02/2016 06:00 ADMISSION INFORMATION Current Admit Date/Time: 04/30/2016 16:02 (04/30/2016 15:46:Corine Triplett RN) Reason for Admission: Onset of Labor (04/30/2016 15:46:Corine Triplett RN) Chief Complaint: Contractions (04/30/2016 15:46:Corine Triplett RN) Medications During : Vitamin (04/30/2016 15:46:Corine Triplett RN) EGA per Dates: 39.6 (04/30/2016 15:46:QS system process) Method of Arrival: Ambulatory (04/30/2016 15:46:Corine Triplett RN) Admitted From: Home (04/30/2016 15:46:Corine Triplett RN) Reason for Induction: Not Applicable (04/30/2016 15:46:Corine Triplett RN) Records Available: Yes (04/30/2016 15:46:Corine Triplett RN) General Admission Information: Reviewed; Confirmed (04/30/2016 15:46:Corine Triplett RN) General Admission Reviewed By: Pilo Triplett RN (04/30/2016 15:46:Corine Triplett RN) BELONGINGS/ADVANCED DIRECTIVES Other Belongings: See belongings consent (04/30/2016 15:46:Corine Triplett RN) Disposition of Belongings: Kept with Patient (04/30/2016 15:46:Corine Triplett RN) Advance Direct for Healthcare: No, and Wants No Information (04/30/2016 15:46:Corine Triplett RN) Durable Power of King Maker: No (04/30/2016 15:46:Corine Triplett RN) Living Will: No (04/30/2016 15:46:Corine Triplett RN) Organ Donor: No (04/30/2016 15:46:Corine Triplett RN) Pt Rights Information Given: Yes (04/30/2016 15:46:Corine Triplett RN) Pt Understands Pt Rights: Yes (04/30/2016 15:46:Corine Triplett RN) LEARNING ASSESSMENT Knowledge Level: Understands L_D Process; Understands Care Activities; Had Pre-Hospital Education; Understands Diagnosis (04/30/2016 15:46:Coirne Triplett RN) Barriers to Learning: None (04/30/2016 15:46:Corine Triplett RN) Learning Readiness: Motivated (04/30/2016 15:46:Corine Triplett RN) Learns Best By: 1 to 1 Instruction (04/30/2016 15:46:Corine Triplett RN) Learning Needs: Labor and Delivery Process; Pain Management; Symptoms to Report; Treatment Plan; Medication; Diagnosis; Nutrition; Equipment; Care; Community Resources (04/30/2016 15:46:Corine Triplett RN) DOMESTIC VIOLANCE SCREENING Dom Viol Threatened/Hurt: No (04/30/2016 15:46:Corine Triplett RN) Hx of Abuse/Neglect past 2yrs: No (04/30/2016 15:46:Corine Triplett RN) Feel Unsafe Going Home: No (04/30/2016 15:46:Corine Triplett RN) Addt'l Observ Indicating Abuse: No (04/30/2016 15:46:Corine Triplett RN) Reason Unable to Complete Screen: N/A, Screen Completed (04/30/2016 15:46:Corine Triplett RN) Considered Personal Harm/Suicide: No (04/30/2016 15:46:Corine Triplett RN) NUTRITIONAL/FUNCTIONAL SCREENING Problem with Appetite >5 Days: No (04/30/2016 15:46:Corine Triplett RN) Chew/Swallow Difficulties: No (04/30/2016 15:46:Corine Triplett RN) Inappropriate Wt Gain/Loss: No (04/30/2016 15:46:Corine Triplett RN) Presence Skin Breakdown/Ulcer: No (04/30/2016 15:46:Corine Triplett RN) Special Diet: No (04/30/2016 15:46:Corine Triplett RN) Pt Requests Car Inspection And Repair Manager Visit: No (04/30/2016 15:46:Corine Triplett RN) Hx of Any of the Following?: N/A (04/30/2016 15:46:Corine Triplett RN) New Diagnosis of: N/A (04/30/2016 15:46:Corine Triplett RN) Requires Assist w/Ambulation: No (04/30/2016 15:46:Corine Triplett RN) Uses Assist Device to Ambulate: No (04/30/2016 15:46:Corine Triplett RN) Pt Requires Help w/ADL's: No (04/30/2016 15:46:Corine Triplett RN)
--- NOTE | 2016-05-02 06:01 | L&D General Admission ---
General Admit Datetime Report Generated by CPN: 05/02/2016 06:00 INFORMATION Patient Age: 25 (03/28/2016 09:28:QS system process) EDC: 05/01/2016 00:00 (04/28/2016 16:10:Corine Triplett RN) : 2 (04/28/2016 16:10:Corine Triplett RN) Para: 0 (04/28/2016 16:10:Corine Triplett RN) Term: 0 (04/28/2016 16:10:Corine Triplett RN) : 0 (04/28/2016 16:10:Corine Triplett RN) Spontaneous Abortions: 1 (04/28/2016 16:10:Corine Triplett RN) Induced Abortions: 0 (04/28/2016 16:10:Corine Triplett RN) Livin (04/28/2016 16:10:Corine Triplett RN) Cesareans: 0 (04/28/2016 16:10:Corine Triplett RN) VBACs: 0 (04/28/2016 16:10:Corine Triplett RN) Ectopic: 0 (04/28/2016 16:10:Corine Triplett RN) Multiple Births: 0 (04/28/2016 16:10:Corine Triplett RN) Baby, Number in Womb: 1 (04/28/2016 16:10:Corine Triplett RN) CARE Primary Rn Picu: [facility] (04/28/2016 16:10:Corine Triplett RN) Month of 1st Visit: 09/2015 (04/28/2016 16:10:Corine Triplett RN) Adequate Care: Yes (04/28/2016 16:10:Corine Triplett RN) Prepregnancy Weight (lb): 156 (04/28/2016 16:10:Corine Triplett RN) Prepregnancy Weight (kg): 70.9 (04/28/2016 16:10:QS system process) Height (in): 62 (05/01/2016 11:09:QS system process) ALLERGIES Medication Allergy: Yes (04/28/2016 16:10:Florence Vila RN) Medication Allergies: ondansetron (04/30/2016) (04/30/2016 23:15:QS system process) Latex Allergy: No Latex Allergies (04/28/2016 16:10:Corine Triplett RN) Food Allergies: N/A (04/28/2016 16:10:Corine Triplett RN) Environmental Allergies: N/A (04/28/2016 16:10:Corine Triplett RN) COMMUNICATION Primary Language: Chilean (04/28/2016 16:10:Corine Triplett RN) Medical Tx Preferred Language: Chilean (04/28/2016 16:10:Corine Triplett RN) DEMOGRAPHICS Address: [address] [place], [place] [address] [address] (04/30/2016 15:25:QS system process) Zipcode: [address] (03/28/2016 09:28:QS system process) Home (03/28/2016 09:28:QS system process) Work (04/28/2016 16:00:QS system process) SSN: [id number] (03/28/2016 09:28:QS system process) Next of Kin Name: EEVLIO ROWELL (03/28/2016 09:28:QS system process) Next of Kin (03/28/2016 09:28:QS system process) Next of Kin Relationship: SPO (03/28/2016 09:28:QS system process) Date of : 1990 (03/28/2016 09:28:QS system process) Marital Status: (03/28/2016 09:28:QS system process) Sex: Female (03/28/2016 09:28:QS system process) Occupation: Healthcare (04/28/2016 16:10:JADA Pedersen) Race: (03/28/2016 09:28:QS system process) Ethnicity: Non- or (03/28/2016 09:28:QS system process) Buddhist: None (04/30/2016 15:25:QS system process) Education: 16 (04/28/2016 16:10:JADA Pedersen) FOB Involved: Yes (04/28/2016 16:10:JADA Pedersen) Father of Baby Name: Evelio Rowell (04/28/2016 16:10:JADA Pedersen) DRUG AND ALCOHOL USE Alcohol: No (04/28/2016 16:10:Corine Triplett RN) Cigarettes: Never Smoker. [id number] (04/28/2016 16:10:Corine Triplett RN) Marijuana: No (04/28/2016 16:10:Corine Triplett RN) Cocaine: No (04/28/2016 16:10:Corine Triplett RN) Other Illicit Drugs: No (04/28/2016 16:10:Corine Triplett RN) VACCINE HISTORY Influenza Vaccine: Yes (04/28/2016 16:10:Corine Triplett RN) Pneumococcal Vaccine: No (04/28/2016 16:10:Corine Triplett RN) Tetanus Vaccine: Yes (04/28/2016 16:10:Corine Triplett RN) Tdap Vaccine: Yes (04/28/2016 16:10:Corine Triplett RN) Hepatitis B Vaccine: Yes (04/28/2016 16:10:Corine Triplett RN) Student Union Consultant: [facility] (04/28/2016 16:10:Corine Triplett RN) Feeding Preference: Breast (04/28/2016 16:10:Corine Triplett RN) Benefit of Breast Feed Discussed: Yes (04/28/2016 16:10:Corine Triplett RN) Circumcision: Yes (04/28/2016 16:10:Corine Triplett RN) Classes Attended: No (04/28/2016 16:10:Corine Triplett RN) Tubal Ligation: No (04/28/2016 16:10:Corine Triplett RN) Tubal Authorization Signed: N/A (04/28/2016 16:10:Corine Triplett RN) Consent: N/A (04/28/2016 16:10:Corine Triplett RN) Consent Signed: N/A (04/28/2016 16:10:Corine Triplett RN) Pain Management Plans: Natural (04/28/2016 16:10:Corine Triplett RN) Plans for Labor and Delivery: None (04/28/2016 16:10:Corine Triplett RN) Support Person: Evelio (04/28/2016 16:10:Corine Triplett RN) Support Person Relationship: (04/28/2016 16:10:Corine Triplett RN) Cultural/Spritual Practice: No (04/28/2016 16:10:Corine Triplett RN) Spir/Cult Dietary Needs: No (04/28/2016 16:10:Corine Triplett RN) LIVING SITUATION/DISCHARGE PLAN Living Arrangements: House (04/28/2016 16:10:Corine Triplett RN) Adequate Access to:: Electric; Heat; Refrigeration; Plumbing/Running water; Phone; Transportation (04/28/2016 16:10:Corine Triplett RN) WIC Program: No (04/28/2016 16:10:Corine Triplett RN) Discharge Scrape Gatherer Person: (04/28/2016 16:10:Corine Triplett RN) Person to Help after Discharge: (04/28/2016 16:10:Corine Triplett RN) Currently Using Commun Resources: No (04/28/2016 16:10:Corine Triplett RN) Outside Agency/Clothing Man: No (04/28/2016 16:10:Corine Triplett RN) Car Seat for Discharge: Yes (04/28/2016 16:10:Corine Triplett RN) Adoption Requested: No (04/28/2016 16:10:Corine Triplett RN) Pt Contact w/infant Post : N/A (04/28/2016 16:10:Corine Triplett RN) LABS Blood Type: O Negative (04/28/2016 16:10:Corine Triplett RN) Antibody Screen: Negative (04/28/2016 16:10:Corine Triplett RN) Rho(G) this : Yes (04/28/2016 16:10:Corine Triplett RN) Date Rho(G) Given: 02/08/16 (04/28/2016 16:10:Corine Triplett RN) Hemoglobin: 12.3 (04/30/2016 17:37:QS system process) Hematocrit: 35.5 L (04/30/2016 17:37:QS system process) MCV: 91 (04/30/2016 17:37:QS system process) Group Beta Strep: Negative (04/28/2016 16:10:Corine Triplett RN) Gonorrhea: Negative (04/28/2016 16:10:Corine Triplett RN) Chlamydia: Negative (04/28/2016 16:10:Corine Triplett RN) RPR/VDRL: Nonreactive (04/28/2016 16:10:Corine Triplett RN) HIV Exposure Test: Negative (04/28/2016 16:10:Corine Triplett RN) Hepatitis B: Negative (04/28/2016 16:10:Corine Triplett RN) Rubella: Immune (04/28/2016 16:10:Corine Triplett RN) OB/PREVIOUS HISTORY History of Previous : No (04/28/2016 16:10:Corine Triplett RN) History of Gestational Diabetes: No (04/28/2016 16:10:Corine Triplett RN) History of PIH: No (04/28/2016 16:10:Corine Triplett RN) History of Incompetent Cervix: No (04/28/2016 16:10:Corine Triplett RN) History of Placenta Previa/Abrup: No (04/28/2016 16:10:Corine Tripeltt RN) History of Macrosomia: No (04/28/2016 16:10:Corine Triplett RN) History of IUGR: No (04/28/2016 16:10:Corine Triplett RN) History of Hemorrhage: No (04/28/2016 16:10:Corine Triplett RN) History of Loss/Stillborn: No (04/28/2016 16:10:Corine Triplett RN) History of : No (04/28/2016 16:10:Corine Triplett RN) History of D (Rh) Sensitization: No (04/28/2016 16:10:Corine Triplett RN) History Recurrent Loss/Stillborn: No (04/28/2016 16:10:Corine Triplett RN) History Depression/PP Depression: No (04/28/2016 16:10:Corine Triplett RN) History of Uterine Anomaly/RITIKA: No (04/28/2016 16:10:Corine Triplett RN) History of Infertility: No (04/28/2016 16:10:Corine Triplett RN) History of ART Treatment: No (04/28/2016 16:10:Corine Triplett RN) History of RITIKA: No (04/28/2016 16:10:Corine Triplett RN) Comments Obstetrical History: G1: SAB 5 weeks G2: Current (04/28/2016 16:10:Corine Triplett RN) MEDICAL HISTORY Med Hx Diabetes: No (04/28/2016 16:10:Corine Triplett RN) Med Hx Hypertension: No (04/28/2016 16:10:Corine Triplett RN) Med Hx Heart Disease: No (04/28/2016 16:10:Corine Triplett RN) Med Hx Autoimmune Disorder: No (04/28/2016 16:10:Corine Triplett RN) Med Hx Kidney Disease/UTI: No (04/28/2016 16:10:Corine Triplett RN) Med Hx Neurologic/Epilepsy: No (04/28/2016 16:10:Corine Triplett RN) Med Hx Psychiatric Disorders: No (04/28/2016 16:10:Corine Triplett RN) Med Hx Hepatitis/Liver Disease: No (04/28/2016 16:10:Corine Triplett RN) Med Hx Varicosities/Phlebitis: No (04/28/2016 16:10:Corine Triplett RN) Med Hx Thyroid Dysfunction: No (04/28/2016 16:10:Corine Triplett RN) Med Hx Trauma/Violence: No (04/28/2016 16:10:Corine Triplett RN) Med Hx Blood Transfusion: No (04/28/2016 16:10:Corine Triplett RN) Med Hx Pulmonary (Asthma,TB): No (04/28/2016 16:10:Corine Triplett RN) Med Hx Breast: No (04/28/2016 16:10:Corine Triplett RN) Med Hx [employer] Surgery: No (04/28/2016 16:10:Corine Triplett RN) Med Hx Hospitalization/Surgery: No (04/28/2016 16:10:Corine Triplett RN) Med Hx Anesthetic Complications: No (04/28/2016 16:10:Corine Triplett RN) Med Hx Abnormal Pap Smear: Yes (04/28/2016 16:10:Corine Triplett RN) Other Medical Diseases: No (04/28/2016 16:10:Corine Triplett RN) Med Hx Significant Family Hx: No (04/28/2016 16:10:Corine Triplett RN) Details of Med/Surg Hx: Abnormal Pap: 2006, No LEEP (04/28/2016 16:10:Corine Triplett RN) INFECTIOUS HISTORY Inf Hx Gonorrhea: No (04/28/2016 16:10:Corine Triplett RN) Inf Hx Chlamydia: No (04/28/2016 16:10:Corine Triplett RN) Inf Hx Syphilis: No (04/28/2016 16:10:Corine Triplett RN) Inf Hx HIV/AIDS: No (04/28/2016 16:10:Corine Triplett RN) Inf Hx Human Papilloma Virus: No (04/28/2016 16:10:Corine Triplett RN) Inf Hx Pt/Partner Genital Herpes: No (04/28/2016 16:10:Corine Triplett RN) Inf Hx Tuberculosis/Exposure: No (04/28/2016 16:10:Corine Triplett RN) Inf Hx Hepatitis B,C: No (04/28/2016 16:10:Corine Triplett RN) Inf Hx Rash or Viral Illness: No (04/28/2016 16:10:Corine Triplett RN) GENETIC HISTORY Gen Hx Age >=35 at JOSEP: No (04/28/2016 16:10:Corine Triplett RN) Gen Hx Thalassemia: No (04/28/2016 16:10:Corine Triplett RN) Gen Hx Congenital Heart Defect: No (04/28/2016 16:10:Corine Triplett RN) Gen Hx Neural Tube Defect: No (04/28/2016 16:10:Corine Triplett RN) Gen Hx Down's Syndrome: No (04/28/2016 16:10:Corine Triplett RN) Gen Hx Jostin-Sachs: No (04/28/2016 16:10:Corine Triplett RN) Gen Hx Eliezer: No (04/28/2016 16:10:Corine Triplett RN) Gen Hx Familial Dysautonomia: No (04/28/2016 16:10:Corine Triplett RN) Gen Hx Sickle Cell Disease/Trait: No (04/28/2016 16:10:Corine Triplett RN) Gen Hx Hemophilia/Blood Disorder: No (04/28/2016 16:10:Corine Triplett RN) Gen Hx Muscular Dystrophy: No (04/28/2016 16:10:Corine Triplett RN) Gen Hx Cystic Fibrosis: No (04/28/2016 16:10:Corine Triplett RN) Gen Hx Huntingtons Chorea: No (04/28/2016 16:10:Corine Triplett RN) Gen Hx Mental Retardation/Autism: No (04/28/2016 16:10:Corine Triplett RN) Gen Hx Tested for Fragile X: No (04/28/2016 16:10:Corine Triplett RN) Gen Hx Other Inher/Chromosomal: No (04/28/2016 16:10:Corine Triplett RN) Gen Hx Maternal Metabolic DO: No (04/28/2016 16:10:Corine Triplett RN) Gen Hx Pt Father or FOB Defect: No (04/28/2016 16:10:Corine Triplett RN) Gen Hx Other Genetic History: No (04/28/2016 16:10:Corine Triplett RN) Gen Hx Drugs/Meds since LMP: Yes (04/28/2016 16:10:Corine Triplett RN) Gen Hx Medications: PNV (04/28/2016 16:10:Corine Triplett RN)
--- NOTE | 2016-05-02 06:15 | L&D Care Plan ---
LD CARE PLANS Datetime Report Generated by CPN: 05/02/2016 06:15 Datetime: 04/30/2016 17:07 State: Risk For (Florence Vila RN) Related To: Labor and Delivery Process; Treatment and Procedures; Post (Florence Vila RN) Goal(s): Patients Pain will be Assessed and Managed; Patient will Verbalize Adequate Relief of Pain or the Ability to [place] with Current Pain (Florence Vila RN) Interventions: Assess Pain Severity on Scale of 0 (None) to 5 (Severe); Assess Type, Location and Intensity of Pain Each Time Client Reports Discomfort and Notify Provider if Unusal Pain Develops; Encourage Proper Breathing and Relaxation Techniques; Offer Alternatives Such as Repositioning, Calm Environment, Massages, Diversional Activities, Ice Pack, Splinting, and Ambulation; Administer Analgesics as Ordered; Assist with Epidural Placement as Appropriate; Evaluate Therapeutic Effectiveness of Medication and Treatments (Florence Vila RN) Outcome: Patient will Report Absence or Relief of Pain Consistent with Established Pain Goal (Florence Vila RN) Status: Ongoing (Florence Vila RN) Outcome: Patient will have a Decrease in Signs and Symptoms of Discomfort (Florence Vila RN) Status: Ongoing (Florence Vila RN) Outcome: Pain will be Controlled During Procedures (Florence Vila RN) Status: Ongoing (Florence Vila RN) State: Risk For (Florence Vila RN) Related To: Labor and Delivery Process; Perceived or Actual Threat to ; Fear of Unknown; Situational Crisis; Significant Life Event (Florence Vila RN) Goal(s): Patient will have Decreased Anxiety and be able to Function at Acceptable Levels (Florence Vila RN) Interventions: Assess Verbal and Nonverbal Behavioral Indicators of Anxiety; Assist Patient to Identify and Verbalize Symptoms of Anxiety; Identify and Demonstrate Techniques to Control Anxiety; Assist Patient with Coping Mechanisms to Manage Anxiety; Provide Theraputic Touch for the Patient; Explain to Patient, Using a Calm Reassuring Approach and Nonmedical Terms, All Activities, Procedures, and Concerns; Instruct Patient and Family about Post Discharge Care, Limitations, Symptoms to Report and Resources Available (Florence Vila RN) Outcome: Patient will Identify, Verbalize and Demonstrate Techniques to Control Anxiety (Florence Vila RN) Status: Ongoing (Florence Vila RN) Outcome: Patient's Posture, Facial Expressions, Gestures and Activity Level will Reflect Decreased Anxiety (Florence Vila RN) Status: Ongoing (Florence Vila RN) Outcome: Patient will Verbalize a Sense of Control and/or Acceptance of the Situation (Florence Vila RN) Status: Ongoing (Florence Vila RN) Outcome: Patient will Identify and Utilize Support Person (Florence Vila RN) Status: Ongoing (Florence Vila RN) State: Risk For (Florence Vila RN) Related To: Labor and Delivery Process; Treatment and Procedures (Florence Vila RN) Goal(s): Patient will Accurately Verbalize Understanding of Plan of Care and Treatment; Patient and Family will Accurately Verbalize Understanding of the Disease Process (Florence Vila RN) Interventions: Assess Motivation and Willingness of Patient/Family to Learn; Assess Preferred Learning Mode: One to One Instruction, Reading, Videos, Group Discussion or Demonstration; Assess Barriers to Learning: Pain, Emotional State, Language Barrier, Cognitive Impairment, Visual or Hearing Deficits; Assess Patient and Family Knowledge of Disease Process, Medications and Treatment; Discuss Therapy and/or Treatment Options, Describe Rationale Behind Management, Therapy and Treatment Recommendations; Instruct Patient and Family on Signs and Symptoms to Report; Instruct Patient and Family on Medication Effects and Side Effects; Provide Appropriate and Timely Education Using Multiple Techniques; Provide Patient and Family with Support Group Information and Resources; Give Clear and Thorough Explanations and Demonstrations (Florence Vila RN) Outcome: Patient and Family will Verbalize Understanding of Condition, Treatment and Signs and Symptoms to Report (Florence Vila RN) Status: Ongoing (Florence Vila RN) Outcome: Patient will Identify Perceived Learning Needs and Express Motivation to Learn (lForence Vila RN) Status: Ongoing (Florence Vila RN) Outcome: Patient will Verbalize Understanding of Desired Content, and/or Performs Desired Skill Prior to Discharge (Florence Vila RN) Status: Ongoing (Florence Vila RN) State: Risk For (Florence Vila RN) Related To: Prolonged Labor or Induction; Invasive Procedures (Florence Vila RN) Goal(s): The Patient will be Free of Infection, Vital Signs Stable and Lab Work within Normal Parameters (Florence Vila RN) Interventions: Instruct and Reinforce Proper Handwashing, Hygiene, and Care Techniques to Patient and Family; Monitor Vital Signs; Monitor Patient for the Following Signs of Infection: Fever, Abdominal Tenderness, Unusual Discharge; Monitor Aminiotic Fluid, Urine and Lochia for Color and Odor; Observe Wounds, Incisions and Invasive Line Sites for Redness, Drainage and Edema; Assess IV Sites per Hospital Policy; Monitor Lab and Test Results and Notify Provider of Abnormal Findings; Assess Nutritional Status and Promote Good Nutrition (Florence Vila RN) Outcome: Patient will Remain Free of Infection (Florence Vila RN) Status: Ongoing (Florence Vila RN) Outcome: Infection will be Recognized Early to Allow for Prompt Treatment (Florence Vila RN) Status: Ongoing (Florence Vila RN) Outcome: Patient will have Vital Signs Within Expected Range (Florence Vila, RN) Status: Ongoing (Florence Vila, RN) State: Risk For (Florence Vila RN) Related To: Prolonged Labor or Induction (Florence Vila, RN) Goal(s): Patient will Achieve and Maintain a Balanced Fluid Volume Status; Hemodynamically Stable (Florence Vila RN) Interventions: Monitor Vital Signs; Auscultate Breath Sounds; Monitor Patient for Skin Turgor, Mucous Membranes, Dry Skin, Weakness, Headaches and Confusion; Provide Oral Fluids as Ordered; Initiate and Maintain Intravenous Fluids as Ordered; Monitor Intake and Output as Indicated Per Patient Status; Accurately Measure Blood Loss; Monitor Lab and Test Results as Obtained and Notify Provider of Abnormal Findings; Monitor Patient's Weight (Florence Vila RN) Outcome: Patient will have Clear Lung Sounds (Florence Vila RN) Status: Ongoing (Florence Vila RN) Outcome: Patient will have Vital Signs within Expected Range (Florence Vila RN) Status: Ongoing (Florence Vila RN) Outcome: Urine Output will be within Expected Range (Florence Vila RN) Status: Ongoing (Florence Vila RN) Outcome: Patient will have Minimal Generalized or Upper Extremity Edema (Florence Vila RN) Status: Ongoing (Florence Vila RN) State: Risk For (Florence Vila RN) Related To: Labor and Delivery Process (Florence Vila RN) Goal(s): Patient will Remain Free from Injury (Florence Vila RN) Interventions: Monitoring as per Hospital Protocol; Assess Neurological Status; Perform Risk Assessment of Patients with Induction and ; Perform Fall Risk Assessment and Prevention per Hospital Protocol; Perform DVT Risk Assessment and Prophylaxis per Hospital Protocol; Ensure that Oxygen, Suction, and Resuscitation Medications and Equipment are Readily Available; Confirm Patient ID Prior to Procedure(s) and Medication Administration per Hospital Policy (Florence Vila RN) Outcome: Successful Fall Risk Prevention (Florence Vila RN) Status: Ongoing (Florence Vila RN) Outcome: Patient will Deliver Infant without Adverse [place] (Florence Vila RN) Status: Ongoing (Florence Vila RN) Outcome: Patient's Neurological Status will Remain Stable (Florence Vila RN) Status: Ongoing (Florence Vila RN) State: Risk For (Florence Vila RN) Related To: Vaginal Delivery; Invasive Procedures (Florence Vila RN) Goal(s): Patient will Maintain Optimal Skin Integrity, Free of Breakdown, Injury or Infection (Florence Vila, RN) Interventions: Complete Screening for Pressure Ulcer Risk and Initiate Protocol per Hospital Policy; Monitor Site of Skin Impairment for Color Changes, Redness, Swelling, Warmth, Pain or Other Signs of Infection; Encourage and Assist with Position Changes; Monitor Patient's Mobility Status; Provide Adequate Nutrition and Fluids; Teach Patient Appropriate Hygienic Care; Teach Patient/Family Skin Care Management (Florence Vila, [place]) Outcome: Patient will not have Evidence of Injury Such as Skin Breakdown, Scrapes, Cuts, or Bruising (Florence Vila RN) Status: Ongoing (Florence Vila RN) Outcome: Patient will Report Any Altered Sensation or Pain at Site of Skin Impairment (Florence Vila RN) Status: Ongoing (Florence Vila RN) Outcome: Patients Incisions and Wounds will be without Signs or Symptoms of Infection (Florence Vila RN) Status: Ongoing (Florence Vila RN) Outcome: Patient will Demonstrate Understanding of Plan to Heal Skin and Prevent Reinjury and Verbalize Risk Factors (Florence Vila RN) Status: Ongoing (Florence Vila RN) State: Not Applicable (Florence Vila RN) State: Not Applicable (Florence Vila RN) State: Not Applicable (Florence Vila RN)
[2016-05-02 07:12] LABS: HEMATOCRIT 23.6 % (36.0-47.0); HGB HCT DIFFERENCE 1.3; MEAN CORPUSCULAR HEMOGLOBIN 32.2 pg (27.0-33.4); MEAN CORPUSCULAR HGB CONC 35.1 g/dL (32.0-36.0); MEAN CORPUSCULAR VOLUME 92 fl (80-97); RED BLOOD COUNT 2.58 10^6/uL (3.72-5.28); RED CELL DISTRIBUTION WIDTH 12.6 % (11.5-14.0)
[2016-05-02 07:20] LABS: HEMOGLOBIN 8.3 g/dL (12.0-15.5)
[2016-05-02] MEDS: OXYCODONE-ACETAMINOPHEN 5-325 MG TABLET PO PRN ×2 (09:41→15:24)
[2016-05-02] MEDS: PRENATAL VITAMIN W-O CA NO5/FE FUMARATE/FA CAPSULE PO SCH (09:41)
[2016-05-02] MEDS: DOCUSATE SODIUM 100 MG CAPSULE PO SCH ×2 (09:41→18:12)
--- NOTE | 2016-05-02 11:07 | PDOC PROGRESS REPORT ---
Subjective-OB Subjective: Post Delivery Day: 25 year old. Denies any needs at this time. Pt doing well, no complaints. She reports light bleeding, regular diet, +flatus and voiding without difficulty. Physical Exam (OB) Vital Signs: Temp Pulse Resp BP Pulse Ox 98.4 F 87 22 H 101/55 L 100 05/02/16 08:00 05/02/16 08:00 05/02/16 08:00 05/02/16 08:00 05/02/16 08:00 Intake & Output 05/01/16 05/02/16 05/03/16 06:59 06:59 06:59 Intake Total 595 200 Output Total 2325 Balance -1730 200 Weight 92.5 kg - Dressing Removed: No - opsite Incision: Dressing, Well Approximated - Lochia Lochia Amount: Small 10-25 ml Lochia Color: Rubra/Red - Abdomen Description: Soft Hernia Present: No Fundal Description: Firm, Midline Fundal Height: u/u - u/2 Objective-Diagnostic Laboratory: 05/02/16 06:25 05/02/16 06:25 WBC 20.0 H RBC 2.58 L Hgb 8.3 L D Hct 23.6 L MCV 92 MCH 32.2 MCHC 35.1 RDW 12.6 Plt Count 155 Assessment and Plan(PN) - Assessment and Plan (1) delivery delivered Is this a current diagnosis for this admission?: Yes - Time Spent with Patient Time with patient: Less than 15 minutes Medications reviewed and adjusted accordingly: Yes - Disposition Anticipated Discharge: Home Within: within 24 hours
[2016-05-02] MEDS: IBUPROFEN 800 MG TABLET PO SCH ×2 (11:37→18:12)
[2016-05-02] MEDS: FERROUS SULFATE 325 MG TABLET PO SCH ×2 (15:23→18:12)
[2016-05-02] MEDS: ASCORBIC ACID 500 MG TABLET PO SCH (18:11)
[2016-05-03] MEDS: IBUPROFEN 800 MG TABLET PO SCH ×3 (00:12→10:56)
[2016-05-03 06:26] LABS: ABSOLUTE EOSINOPHILS # (AUTO) 0.1 10^3/uL (0.0-0.6); ABSOLUTE LYMPHOCYTES (AUTO) 2.2 10^3/uL (0.5-4.7); ABSOLUTE MONOCYTES (AUTO) 0.7 10^3/uL (0.1-1.4); ABSOLUTE NEUT (AUTO) 10.2 10^3/uL (1.7-8.2); BASOPHILS % (AUTO) 0.2 % (0-2); EOSINOPHILS % (AUTO) 0.7 % (0-6); HEMATOCRIT 24.4 % (36.0-47.0); HEMOGLOBIN 8.4 g/dL (12.0-15.5); HGB HCT DIFFERENCE 0.8; LYMPHOCYTES % (AUTO) 16.4 % (13-45); MEAN CORPUSCULAR HEMOGLOBIN 31.3 pg (27.0-33.4); MEAN CORPUSCULAR HGB CONC 34.3 g/dL (32.0-36.0); MEAN CORPUSCULAR VOLUME 91 fl (80-97); MONOCYTES % (AUTO) 5.2 % (3-13); RED BLOOD COUNT 2.67 10^6/uL (3.72-5.28); RED CELL DISTRIBUTION WIDTH 12.5 % (11.5-14.0); SEGMENTED NEUTROPHILS % (AUTO) 77.5 % (42-78); WHITE BLOOD COUNT 13.2 10^3/uL (4.0-10.5)
[2016-05-03 08:51] VITALS: BP 109/47
[2016-05-03] MEDS: ASCORBIC ACID 500 MG TABLET PO SCH (10:54)
[2016-05-03] MEDS: PRENATAL VITAMIN W-O CA NO5/FE FUMARATE/FA CAPSULE PO SCH (10:54)
[2016-05-03] MEDS: DOCUSATE SODIUM 100 MG CAPSULE PO SCH (10:54)
[2016-05-03] MEDS: FERROUS SULFATE 325 MG TABLET PO SCH (10:54)
--- NOTE | 2016-05-03 10:59 | PDOC DISCHARGE SUMMARY ---
Final Diagnosis Discharge Date: 05/03/16 - Final Diagnosis (1) delivery delivered Is this a current diagnosis for this admission?: Yes Discharge Data - Discharge Medication Home Medications: Vit/Iron Fumarate/FA [ Tablet] 1 tab PO DAILY 04/28/16 Docusate Sodium [Colace 100 mg Capsule] 100 mg PO BID #30 capsule 05/02/16 Ferrous Sulfate [Feosol 325 mg Tablet] 325 mg PO TID #90 tablet 05/02/16 Ibuprofen [Motrin 800 mg Tablet] 800 mg PO Q6 #60 tablet 05/02/16 Oxycodone HCl/Acetaminophen [Percocet 5-325 mg Tablet] 1 tab PO Q4HP PRN #30 tablet 05/02/16 Reason(s) for Admission: Onset of Labor, Obstetric Complications Procedures: NST Intrapartum Procedure(s): : Low Cervical, Transverse - Diagnosis Test Laboratory: Temp Pulse Resp BP Pulse Ox 97.6 F 75 16 109/47 L 100 05/02/16 12:00 05/02/16 12:00 05/02/16 12:00 05/02/16 12:00 05/02/16 12:00 04/30/16 04/30/16 05/02/16 15:32 17:37 06:25 RBC 3.92 2.58 L Hgb 12.3 8.3 L D Hct 35.5 L 23.6 L Urine Opiates Screen NEGATIVE - Discharge information/Instructions Discharge Activity: Activity As Tolerated, Balance Activity w/Rest, No Lifting Over 10 Pounds, Pelvic Rest, No tub bath Discharge Diet: Regular Disposition: HOME, SELF-CARE Follow [facility] with: [facility]: 5, Days
--- NOTE | 2016-06-23 11:34 | OPERATIVE REPORT E ---
Operative Report NAME: DANIEL ROWELL : 1990 AGE: 25Y DATE OF SURGERY: 05/01/2016 ROOM: 214 PREOPERATIVE DIAGNOSES: 1. Term intrauterine in active labor. 2. Failure to progress. POSTOPERATIVE DIAGNOSES: 1. Term intrauterine in active labor. 2. Failure to progress. PROCEDURE: Low transverse hysterotomy section. SURGEON: LORIN MCLEAN M.D. ANESTHESIA: Dr. Tatum with an epidural. ESTIMATED BLOOD LOSS: 600 mL. FINDINGS: Abnormal cord length of less than 12 inches. Meconium present. Apgars of 9 and 9. PROCEDURE IN DETAIL: Patient was taken to the operating room, prepared and draped in a normal sterile fashion in a supine position with a leftward tilt. Transverse skin incision was made with the scalpel and carried through to the underlying layer of fascia with the same scalpel. The fascia was excised in the midline and extended laterally with Eric. The fascia was dissected sharply from the rectus muscle using Eric and the rectus muscle was divided. The peritoneal cavity was entered bluntly with surgeon finger fracture with good visualization of the bladder and the uterus. The bladder blade was inserted and the hysterotomy was nicked in the center with the scalpel and extended laterally with surgeon finger fracture. The infant was then delivered atraumatically. The nose and mouth were suctioned with a suction bulb, cord was clamped and cut and noticed to be of an abnormal length. The was handed off to awaiting pediatricians. The placenta was removed manually and the uterus was exteriorized and cleared of clots and debris. The hysterotomy was closed with 0 Monocryl in a running locked fashion. A second layer of the same suture was used to imbricate to ensure hemostasis. The uterus was returned to the abdomen. The peritoneal cavity was cleared of clots and debris. The peritoneum and rectus muscle were reapproximated with 2-0 Chromic mattress stitch. The fascia was closed with 0 Vicryl. The subcutaneous layer was closed with plain catgut and the skin was closed with 4-0 Vicryl. Patient tolerated the procedure well. Sponge, lap, and needle counts were correct x2. DICTATING PHYSICIAN: LORIN MCLEAN M.D. [id number] PHY#: [id number] ID: [id number] JOB#: [id number] ACCT: [id number] cc:LORIN MCLEAN M.D. >
== END 2016-05-03 12:31 | disposition home or self-care (01) | DRG 766 ==
LOC: LC 15:25 → LR 17:12 → 2S 05-01 07:54
PROVIDERS: ADMIT Obstetrics & Gynecology; ATTEND Obstetrics & Gynecology
PROC: 10D00Z1 Extraction of Products of Conception, Low, Open Approach (ICD-10-PCS; principal; 2016-04-30)
PROC: 4A1HXCZ Monitoring of Products of Conception, Cardiac Rate, External Approach (ICD-10-PCS; 2016-04-30)
DX: O62.2 Other uterine inertia (principal); O64.8XX0 Obstructed labor due to other malposition and malpresentation, not applicable or unspecified; O34.211 Maternal care for low transverse scar from previous cesarean delivery; O77.0 Labor and delivery complicated by meconium in amniotic fluid; O69.89X0 Labor and delivery complicated by other cord complications, not applicable or unspecified; Z88.8 Allergy status to other drugs, medicaments and biological substances; Z3A.40 40 weeks gestation of pregnancy; Z37.0 Single live birth
CPT/HCPCS: 1961; 36415; 80307; 81005; 85025; 85027; 86592; 86850; 86900; 86901; 94760; 94799; J0131; J0690; J1100; J1200; J1885; J2250; J2270; J2300; J2370; J2405; J2590; J2765; J3010; J3490; J7120; S0119

== ENCOUNTER 2017-05-21 03:32 | Emergency (ER) | payer BC, OTHER ==
[2017-05-21 04:06] LABS: APPEARANCE,URINE CLEAR; BILIRUBIN,URINE NEGATIVE (NEGATIVE); COLOR,URINE STRAW; GLUCOSE, URINE NEGATIVE (NEGATIVE); KETONES,URINE NEGATIVE (NEGATIVE); LEUKOCYTE ESTERASE,URINE MODERATE (NEGATIVE); NITRITE,URINE NEGATIVE (NEGATIVE); PROTEIN,URINE NEGATIVE (NEGATIVE); URINE SPECIFIC GRAVITY 1.002; UROBILINOGEN,URINE NEGATIVE mg/dL (<2.0)
--- NOTE | 2017-05-21 04:41 | ER Document Report ---
ED General - General Mode of Arrival: Ambulatory Information source: Patient TRAVEL OUTSIDE OF THE [place] IN LAST 30 DAYS: No - HPI Onset: Yesterday Onset/Duration: Gradual Quality of pain: Achy, Cramping Severity: Mild Pain Level: 1 Associated symptoms: Nausea. denies: Chest pain, Nonproductive cough, Diarrhea , Fever, Vomiting, Shortness of breath Exacerbated by: Movement, Walking Relieved by: Sitting Similar symptoms previously: No Recently seen / treated by doctor: No <ABBEY ZEE - Last Filed: 05/21/17 06:50> <KAYLEE JONES JR - Last Filed: 05/21/17 08:45> - General Chief Complaint: Abdominal Pain Stated Complaint: ABDOMINAL PAIN Time Seen by Provider: 05/21/17 04:03 Notes: 26-year-old female with no significant past medical history presents with complaint of abdominal pain. Patient states abdominal pain started 1 day prior to arrival. She states it initially started around her umbilicus and moved to the right lower quadrant. She describes it as a constant dull ache that is worse with walking. She has had associated nausea without vomiting. She has not taken anything for this pain. she denies prior similar symptoms. Her last bowel movement was today and normal and color and caliber. Patient denies fever , chills, chest pain, shortness of breath, dysuria, hematuria, vaginal discharge , concern for STD. She denies sick contacts. (ABBEY ZEE) - Related Data Allergies/Adverse Reactions: ondansetron [From Zofran (as hydrochloride)] Adverse Reaction (Verified 04:44) Past Medical History - General Information source: Patient - Social History Smoking Status: Never Smoker Frequency of alcohol use: None Drug Abuse: None Lives with: Spouse/Significant other Family History: Reviewed & Not Pertinent Patient has suicidal ideation: No Patient has homicidal ideation: No Renal/ Medical History: Denies: Hx Peritoneal Dialysis Past Surgical History: Reports: Hx Section <ABBEY ZEE - Last Filed: 05/21/17 06:50> Review of Systems <ABBEY ZEE - Last Filed: 05/21/17 06:50> <KAYLEE JONES JR E - Last Filed: 05/21/17 08:45> - Review of Systems Notes: Patient denies ache, fever, chills, chest pain, shortness of breath, dysuria, hematuria, vaginal discharge, back pain, concern for STD. She denies sick contacts. (YAYOMONIE) Physical Exam - Vital signs Interpretation: Normal, Tachycardic <ABBEY ZEE E - Last Filed: 05/21/17 06:50> <KAYLEE JONES JR - Last Filed: 05/21/17 08:45> - Vital signs Vitals: Pulse Resp BP Pulse Ox 106 H 18 110/68 100 05/21/17 03:38 05/21/17 03:38 05/21/17 03:38 05/21/17 03:38 Notes: PHYSICAL EXAMINATION: GENERAL: Well-appearing, well-nourished and in no acute distress. HEAD: Atraumatic, normocephalic. EYES: Pupils equal round and reactive to light, extraocular movements intact, conjunctiva are normal. ENT: Nares patent, oropharynx clear without exudates. Moist mucous membranes. NECK: Normal range of motion, supple without lymphadenopathy LUNGS: Breath sounds clear to auscultation bilaterally and equal. No wheezes rales or rhonchi. HEART: Regular rate and rhythm without murmurs ABDOMEN: Soft, to palpation in the periumbilical and right lower quadrant. No guarding, no rebound. No masses appreciated. Female : deferred Musculoskeletal: Normal range of motion, no pitting or edema. No cyanosis. NEUROLOGICAL: Cranial nerves grossly intact. Normal speech, normal gait. Normal sensory, motor exams PSYCH: Normal mood, normal affect. SKIN: Warm, Dry, normal turgor, no rashes or lesions noted. (YAYOMONIE) Course - Laboratory Result Diagrams: 05/21/17 04:38 05/21/17 04:38 - Diagnostic Test Radiology reviewed: Pending <ZEEABBEY Chen - Last Filed: 05/21/17 06:50> - Laboratory Result Diagrams: 05/21/17 04:38 05/21/17 04:38 <KAYLEE JONES JR - Last Filed: 05/21/17 08:45> - Re-evaluation Re-evalutation: Laboratory 05/21/17 05/21/17 05/21/17 03:48 03:48 04:38 WBC 11.6 H RBC 4.24 Hgb 12.6 Hct 36.9 MCV 87 MCH 29.7 MCHC 34.1 RDW 12.5 Plt Count 236 Seg Neutrophils % 76.1 Lymphocytes % 19.9 Monocytes % 3.6 Eosinophils % 0.1 Basophils % 0.3 Absolute Neutrophils 8.9 H Absolute Lymphocytes 2.3 Absolute Monocytes 0.4 Absolute Eosinophils 0.0 Absolute Basophils 0.0 Sodium Potassium Chloride Carbon Dioxide Anion Gap BUN Creatinine Est GFR ( Amer) Est GFR (Non-Af Amer) Glucose Calcium Total Bilirubin Direct Bilirubin Neonat Total Bilirubin Neonat Direct Bilirubin Neonat Indirect Bili AST ALT Alkaline Phosphatase Total Protein Albumin Lipase Urine Color STRAW Urine Appearance CLEAR Urine pH 8.0 Ur Specific [place] 1.002 Urine Protein NEGATIVE Urine Glucose (UA) NEGATIVE Urine Ketones NEGATIVE Urine Blood NEGATIVE Urine Nitrite NEGATIVE Urine Bilirubin NEGATIVE Urine Urobilinogen NEGATIVE Ur Leukocyte Esterase MODERATE H Urine WBC (Auto) 6 Urine RBC (Auto) 1 Squamous Epi Cells Auto 1 Urine Mucus (Auto) RARE Urine Ascorbic Acid NEGATIVE Urine HCG, Qual NEGATIVE 05/21/17 04:38 WBC RBC Hgb Hct MCV MCH MCHC RDW Plt Count Seg Neutrophils % Lymphocytes % Monocytes % Eosinophils % Basophils % Absolute Neutrophils Absolute Lymphocytes Absolute Monocytes Absolute Eosinophils Absolute Basophils Sodium 140.9 Potassium 4.0 Chloride 105 Carbon Dioxide 29 Anion Gap 7 BUN 9 Creatinine 0.69 Est GFR ( Amer) > 60 Est GFR (Non-Af Amer) > 60 Glucose 94 Calcium 9.1 Total Bilirubin 1.0 Direct Bilirubin 0.3 Neonat Total Bilirubin Not Reportable Neonat Direct Bilirubin Not Reportable Neonat Indirect Bili Not Reportable AST 29 ALT 27 Alkaline Phosphatase 61 Total Protein 7.7 Albumin 4.1 Lipase 37.1 Urine Color Urine Appearance Urine pH Ur Specific [place] Urine Protein Urine Glucose (UA) Urine Ketones Urine Blood Urine Nitrite Urine Bilirubin Urine Urobilinogen Ur Leukocyte Esterase Urine WBC (Auto) Urine RBC (Auto) Squamous Epi Cells Auto Urine Mucus (Auto) Urine Ascorbic Acid Urine HCG, Qual 05/21/17 06:13 26-year-old female with no significant past medical history presents with complaint of abdominal pain. Patient states abdominal pain started 1 day prior to arrival. She states it initially started around her umbilicus and moved to the right lower quadrant. She describes it as a constant dull ache that is worse with walking. She has had associated nausea without vomiting. On arrival patient is mildly tachycardic but afebrile. Does not appear toxic or dehydrated. She is in no acute distress. Exam is significant for periumbilical and right lower quadrant tenderness with palpation. She does not display guarding or rebound. Patient currently declining pain medication. She is not currently experiencing nausea. CT of the abdomen and pelvis with IV and oral contrast is pending to assess for appendicitis. Patient's pain was gradual in onset and remains to be dull aching pain. I have low suspicion for torsion this time. UA significant for moderate leuk esterase and WBCs. CBC is with mild leukocytosis and left shift. Cipro IV will be administered. Patient will be signed out to Dr. Jones with CT of the abdomen pelvis pending. 05/21/17 06:16 (ABBEY ZEE) 05/21/17 08:43 Patient was signed out to me at shift change pending CT scan. The CT scan showed likely ruptured ovarian cyst. No signs of appendicitis. The patient does have a mild urinary tract infection and will placed on Cipro for that. Patient will be discharged home repeat abdominal exams show some mild discomfort on the right however no rebound or guarding. Rovsing and psoas sign are negative. My suspicion by exam for acute appendicitis is low. I spoke with the patient if she does not improve in 24 hours or she feels worse to return to the ER and allow us to reevaluate her. Otherwise follow-up with her [employer] for the ovarian cyst. (KAYLEE JONES JR) - Vital Signs Vital signs: Temp Pulse Resp BP Pulse Ox 106 H 18 110/68 100 05/21/17 03:38 05/21/17 03:38 05/21/17 03:38 05/21/17 03:38 - Laboratory Laboratory results interpreted by me: 05/21/17 05/21/17 03:48 04:38 WBC 11.6 H Absolute Neutrophils 8.9 H Ur Leukocyte Esterase MODERATE H Discharge <ABBEY ZEE - Last Filed: 05/21/17 06:50> <KAYLEE JONES JR - Last Filed: 05/21/17 08:45> - Discharge Clinical Impression: UTI (urinary tract infection) Qualifiers: Urinary tract infection type: site unspecified Hematuria presence: without hematuria Qualified Code(s): N39.0 - Urinary tract infection, site not specified Condition: Good Disposition: HOME, SELF-CARE Instructions: Urinary Tract Infection ([facility]) Prescriptions: Ciprofloxacin HCl [Cipro 500 mg Tablet] 500 mg PO BID #10 tablet Referrals: JOLEEN SARMIENTO MD [ACTIVE STAFF] - Follow up in 3-5 days
[2017-05-21 04:57] LABS: ABSOLUTE LYMPHOCYTES (AUTO) 2.3 10^3/uL (0.5-4.7); ABSOLUTE MONOCYTES (AUTO) 0.4 10^3/uL (0.1-1.4); ABSOLUTE NEUT (AUTO) 8.9 10^3/uL (1.7-8.2); BASOPHILS % (AUTO) 0.3 % (0-2); EOSINOPHILS % (AUTO) 0.1 % (0-6); HEMATOCRIT 36.9 % (36.0-47.0); HEMOGLOBIN 12.6 g/dL (12.0-15.5); LYMPHOCYTES % (AUTO) 19.9 % (13-45); MEAN CORPUSCULAR HEMOGLOBIN 29.7 pg (27.0-33.4); MEAN CORPUSCULAR HGB CONC 34.1 g/dL (32.0-36.0); MEAN CORPUSCULAR VOLUME 87 fl (80-97); MONOCYTES % (AUTO) 3.6 % (3-13); PLATELET COUNT 236 10^3/uL (150-450); RED BLOOD COUNT 4.24 10^6/uL (3.72-5.28); RED CELL DISTRIBUTION WIDTH 12.5 % (11.5-14.0); SEGMENTED NEUTROPHILS % (AUTO) 76.1 % (42-78); TOTAL CELLS COUNTED % (AUTO) 100 %; WHITE BLOOD COUNT 11.6 10^3/uL (4.0-10.5)
[2017-05-21 05:21] LABS: ALANINE AMINOTRANSFERASE 27 U/L (9-52); ALBUMIN 4.1 g/dL (3.5-5.0); ALKALINE PHOSPHATASE 61 U/L (38-126); ANION GAP 7 (5-19); ASPARTATE AMINO TRANSFERASE 29 U/L (14-36); BILIRUBIN,DIRECT 0.3 mg/dL (0.0-0.4); BLOOD UREA NITROGEN 9 mg/dL (7-20); CALCIUM 9.1 mg/dL (8.4-10.2); CARBON DIOXIDE 29 mmol/L (22-30); CHLORIDE 105 mmol/L (98-107); GLUCOSE 94 mg/dL (75-110); LIPASE 37.1 U/L (23-300); SODIUM 140.9 mmol/L (137-145); TOTAL PROTEIN 7.7 g/dL (6.3-8.2)
[2017-05-21] MEDS ORDERED: NORMAL SALINE 1000 ML 1,000 ML IV ONE (06:12)
[2017-05-21] MEDS ORDERED: CIPROFLOXACIN 400 MG/D5W RTU 400 MG/200 ML RTUPB IV SCH (07:00)
--- NOTE | 2017-05-21 08:32 | RADIOLOGY REPORT (SQ) ---
EXAM DESCRIPTION: CT ABD/PELVIS WITH IV ORAL COMPLETED DATE/TIME: 05/21/2017 7:43 am REASON FOR STUDY: RLq pain COMPARISON: None. TECHNIQUE: CT scan of the abdomen and pelvis performed using helical scanning technique with dynamic intravenous contrast injection. Patient drank oral contrast. Images reviewed with lung, soft tissue , and bone windows. Reconstructed coronal and sagittal MPR images reviewed. Delayed images for evalua tion of the urinary system also acquired. All images stored on PACS. All CT scanners at this facility use dose modulation, iterative reconstruction, and/or weight based d osing when appropriate to reduce radiation dose to as low as reasonably achievable (ALARA). [facility]: Dose Right [facility]: CareDose [facility]: Dose Right [facility]: Teradose 4D [facility]: Ntractive CONTRAST TYPE AND DOSE: contrast/concentration: Isovue 370.00 mg/ml; Total Contrast Delivered: 81.0 ml; Total Saline Delivered: 68.1 ml RENAL FUNCTION: Creatinine 0.69 RADIATION DOSE: CT Rad equipment meets quality standard of care and radiation dose reduction techniq ues were employed. CTDIvol: 9.9 - 12.6 mGy. DLP: 1237 mGy-cm.. LIMITATIONS: None. FINDINGS: LOWER CHEST: No significant findings. No nodules or infiltrates. LIVER: Normal size. No masses. No dilated ducts. SPLEEN: Normal size. No focal lesions. PANCREAS: No masses. No significant calcifications. No adjacent inflammation or peripancreatic fluid collections. Pancreatic duct not dilated. GALLBLADDER: Gallstones. No inflammatory changes to suggest cholecystitis. ADRENAL GLANDS: No significant masses or asymmetry. RIGHT KIDNEY AND URETER: No solid masses. No significant calcifications. No hydronephrosis or hyd roureter. LEFT KIDNEY AND URETER: No solid masses. No significant calcifications. No hydronephrosis or hydr oureter. AORTA AND VESSELS: No aneurysm. No dissection. Renal arteries, SMA, celiac without stenosis. RETROPERITONEUM: No retroperitoneal adenopathy, hemorrhage or masses. BOWEL AND PERITONEAL CAVITY: No masses or inflammatory changes. No free fluid or peritoneal masses. Patient drank oral contrast, no CT evidence of bowel obstruction APPENDIX: Normal. Best shown on axial images 68-73, and coronal images 19-25. PELVIS: Trace right adnexal fluid. Question ruptured right ovarian cyst, with cyst remnant on axial image 74. Normal size uterus and ovaries. IUD in good positioning. Bladder unremarkable. No pelvi c adenopathy. ABDOMINAL WALL: No masses. No hernias. BONES: No significant or acute findings. OTHER: No other significant finding. IMPRESSION: Suspect ruptured right ovarian cyst. Normal appendix identified filled with oral contra st. TECHNICAL DOCUMENTATION: JOB ID: [id number] Quality ID # [id number]: Final reports with documentation of one or more dose reduction techniques (e.g., Au tomated exposure control, adjustment of the mA and/or kV according to patient size, use of iterative reconstruction technique) 2010 [employer]- All Rights Reserved Reading location - IP/workstation name: [email or web address]
[2017-05-21 09:21] VITALS: BP 108/45
== END 2017-05-21 09:21 | disposition home or self-care (01) ==
LOC: ER 03:32
DX: N39.0 Urinary tract infection, site not specified (principal); R10.31 Right lower quadrant pain; R11.0 Nausea; R10.815 Periumbilic abdominal tenderness; R10.813 Right lower quadrant abdominal tenderness; R00.0 Tachycardia, unspecified
CPT/HCPCS: 99284; 96365; 36415; 83690; 85025; 81025; 80053; 81001; 74177; J7030; J0744